=== PATIENT | female | born 2005 | race Caucasian/White ===

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

== ENCOUNTER 2024-07-17 08:09 | Emergency (ER) | payer BC, SELFPAY ==
[2024-07-17 08:10] VITALS: BP 125/83; PULSE 91; RESP 16; TEMP 36.8; O2SAT 100; BMI 24.5
[2024-07-17 08:28] VITALS: BP 130/88; PULSE 94; O2SAT 99
[2024-07-17 08:28] LABS: Microscopic, Urine URINE MICROSCOPIC (MICROSCOPIC)
[2024-07-17 08:30] VITALS: BP 115/64; PULSE 25; O2SAT 93
[2024-07-17 08:33] LABS: Appearance,Urine CLEAR (Clear); Bilirubin,Urine Negative (Negative); Blood, Urine Negative (Negative); Color,Urine YELLOW (Yellow); Glucose,Urine (UA) Negative (Negative); Ketones,Urine Negative (Negative); Leukocyte Esterase,Urine TRACE (Negative); Nitrate,Urine Negative (Negative); Protein,Urine Negative (Negative); Specific Gravity, Urine 1.025 (1.005-1.030); Urobilinogen,Urine 0.2 EU/dl (0.2)
[2024-07-17 08:36] LABS: Urine Pregnancy, HCG Qual. Negative (Negative)
[2024-07-17 08:37] VITALS: BP 95/63; PULSE 89; O2SAT 99
--- NOTE | 2024-07-17 08:44 | ED_ITS ---
Discharge Plan Disposition Patient Disposition: Home, Self-Care Condition: Good Prescriptions Prescriptions: New polyethylene glycol 3350 [Miralax] 17 gram/dose powder 17 g PO DAILY Qty: 510 0RF hydrocortisone acetate [Anusol-HC] 25 mg suppository 25 mg [place] HS PRN (Reason: hemorrhoids) Qty: 24 0RF No Action levonorgestrel-ethinyl estrad [Aviane] 0.1-20 mg-mcg tablet 1 tab PO DAILY Qty: 84 0RF Referrals Follow up/Referrals: Farzaneh Philippe APRN [Primary Care Provider] - See instructions Activity Restrictions/Add. Instructions Additional Instructions/Restrictions: You were evaluated in the emergency department today. At this time, you have a fissure at the posterior aspect of your vagina as well as a small hemorrhoid. We are prescribing you MiraLAX to make sure that your stools are soft to alleviate pressure on your hemorrhoid and to make sure that you do not have to strain to have bowel movements. For your vaginal fissure, I recommend avoiding irritants such as soap, spermicide cream, irritating lubricants, or rough pantiliners. You may coat the area with Vaseline or petroleum jelly to help provide a protective barrier if this helps to eliminate pain. I recommend warm sitz baths. I recommend avoiding sexual activity until this area has improved and you no longer have pain. Once you resume sexual activity, make sure you have adequate lubrication. Please follow-up very closely with gynecology over the next week for reassessment, as they may need to do further testing if this persists. Return to the emergency department for new or worsening symptoms. Clinical Impressions Clinical Impression: Fissure of genital labia, Candidiasis of vagina, Hemorrhoid Stand Alone Forms Stand Alone Forms: Work/School Release Instructions Patient Instructions: DI for Vulvo-vaginal Tears Print Language Print Language: Romansh Discharge ED Provider: Cecelia Fine General Adult HPI General Chief complaint: Skin/Abscess/Foreign Body Stated complaint: Pain in private area Time Seen by Provider: 07/17/24 08:12 Mode of Arrival: Ambulatory Source of Information: Patient Limitations: No Limitations Description of Symptoms (Recalled from ER Triage Doc. by RN): pt presents to ED with c/o possible bump in vaginal area. pt reports that she noticed about 1 day ago. pt did get nexplanon removed from arm yesterday at obgyn office. History of Present Illness HPI narrative: This patient is a 18-year-old female without significant past medical history presenting to the emergency department for evaluation with concern for vaginal pain. Patient reports that she has an area of irritation with burning and pain between her vagina and rectum. She states she is not sure if she has a hemorrhoid or what it could be. It started bothering her 2 days ago, but got acutely worse today. She notes that whenever she pees and urine runs back onto the area, it howard. She also has significant pain if she tries to have a bowel movement or wipes. She is sexually active but reports use of protection with no concerns for sexually transmitted infection. She has no history of sexually transmitted infection. She denies any fevers, chills, abdominal pain, nausea, vomiting, dysuria, abnormal vaginal discharge or bleeding. Of note, she did have a Nexplanon removed yesterday with gynecology for abnormal uterine bleeding. She does note that she has chronic constipation on review of systems. Related Data Previous Rx's ?Medication ?Instructions ?Recorded levonorgestrel-ethinyl estradiol 1 tab PO DAILY #84 tabs 07/16/24 0.1 mg-20 mcg tablet (Aviane) hydrocortisone acetate 25 mg 25 mg [place] HS PRN hemorrhoids #24 ea 07/17/24 rectal suppository (Anusol-HC) polyethylene glycol 3350 17 17 g PO DAILY #510 grams 07/17/24 gram/dose oral powder (Miralax) Allergies Allergy/AdvReac Type Severity Reaction Status Date / Time ceftriaxone (From Rocephin) Allergy Intermediate Rash Verified 07/16/24 13:49 [facility] Disclaimer: The information contained in this section may have been updated after the patient was seen, as this information can be updated by other users. Medical History Anxiety Urinary tract infection Abnormal uterine bleeding Migraine Scheuermann disease Surgical History History of tympanostomy tube placement History of tonsillectomy Family History Other Thyroid disorder Social History Smoking Status: Never smoker alcohol intake: never substance use type: denies use current occupational status: employed, student and other Travel in the last 8 weeks: None household members: family housing: house number of children: 0 Have you lived/traveled outside US in past 30 days?: No Contact w/someone who lives/traveled outside US past 30 days?: No Exposure to someone with infectious disease in past 14 days?: No Do you have a fever (greater than 100.4 F or 38 C)?: No Have you tested positive for COVID-19: No Exposed to someone with COVID-19 in past 14 days?: No Do you have a sore throat?: No Do you have a cough?: No Do you have any weakness?: No Do you have any diarrhea?: No Are you experiencing any unusual bleeding?: No Do you have any muscle aches/pain?: No Do you have any abdominal pain?: No Are you experiencing loss of taste or smell?: No Other Medical History Have you received the Flu Vaccine for this season: No Have you received the Pneumonia Vaccine: No ROS Obtained: Yes All systems reviewed & no additional complaints except as documented Physical Exam General General appearance: alert and in no apparent distress Head Head exam: atraumatic and normocephalic Eye Eye exam: Present normal appearance, PERRL and EOMI ENT ENT exam: Present normal exam, normal oropharynx, mucous membranes moist and normal external ear exam Neck Neck exam: Present normal inspection, full ROM and trachea midline; Absent tenderness Chest Chest inspection: Present normal inspection and symmetric chest wall rise; Absent tenderness Respiratory Respiratory exam: Present normal lung sounds bilaterally; Absent respiratory distress, wheezes, stridor or accessory muscle use Cardiovascular Cardiovascular exam: Present regular rate and normal rhythm Abdominal Exam Abdominal exam: Present soft; Absent distention, tenderness or guarding Expanded Exam OB exam: Present vulvar erythema and vulvar tenderness Female Image: 2 1. Fissuring of the posterior fourchette with redness, irritation, tenderness to palpation. White discharge. 2. Erythema and skin irritation 3. Nonthrombosed hemorrhoid that is tender to palpation Extremities Exam Extremities exam: Present normal inspection, full ROM and normal capillary refill; Absent tenderness or edema Back Exam Back exam: Present normal inspection and full ROM; Absent tenderness Neurological Exam Neurological exam: Present alert, oriented X3, CN II-XII intact and normal gait; Absent motor sensory deficit Psychiatric Psychiatric exam: Present normal affect and normal mood Skin Skin exam: Present warm and dry Medical Decision Making Medical Records Medical records reviewed: Yes I reviewed the patient's medical records. Screening: Per USPSTF and CDC recommendations, given the prevalence of disease in our region, it is our hospital?s policy to screen for HIV and viral Hepatitis for all patients aged 18 and over and those with ongoing risk factors. Tarun Inquiry Pt receiving controlled substance: No Vital Signs: 07/17/24 08:10 07/17/24 08:28 07/17/24 08:30 Temperature 98.2 F Temperature Source Oral Pulse Rate 94 H 25 L Pulse Rate [Left Radial] 91 H Respiratory Rate 16 Blood Pressure 130/88 115/64 Blood Pressure [Right Arm] 125/83 Blood Pressure Mean [Right Arm] 97 02 Sat by Pulse Oximetry 100 99 93 L Oxygen Delivery Method Room Air Room Air 07/17/24 08:37 07/17/24 09:38 Temperature 97.8 F Temperature Source Pulse Rate 89 80 Pulse Rate [Left Radial] Respiratory Rate 18 Blood Pressure 95/63 L 95/63 L Blood Pressure [Right Arm] Blood Pressure Mean [Right Arm] 02 Sat by Pulse Oximetry 99 Oxygen Delivery Method Room Air Lab Data Lab results reviewed: Yes I reviewed the patient's lab results. Lab Results 07/17/24 08:18: Urine Color Yellow, Urine Appearance Clear, Urine pH 6.0, Ur Specific [place] 1.025, Urine Protein Negative, Urine Glucose (UA) Negative, Urine Ketones Negative, Urine Blood Negative, Urine Nitrate Negative, Urine Bilirubin Negative, Urine Urobilinogen 0.2, Ur Leukocyte Esterase Trace, Urine RBC Occasional, Urine WBC 5-10, Ur Squamous Epith Cells 10-20, Urine Bacteria 1+, Urine HCG, Qual Negative Orders (Tests/Meds): ED MEDICATIONS Discontinued Medications Generic Name Dose Route Start Last Admin Trade Name Freq PRN Reason Stop Dose Admin Acetaminophen 1,000 mg 07/17/24 08:29 07/17/24 08:45 Acetaminophen 500mg Tab PO 07/17/24 08:30 1,000 mg ONCE ONE Administration Cocaine HCl 1 ml 07/17/24 08:35 Cocaine 4% Topical Soln 4ml Bottle TP 07/17/24 08:36 ONCE ONE Epinephrine HCl 1 mg 07/17/24 08:35 Epinephrine 1 Mg/Ml Ampul TP 07/17/24 08:36 ONCE ONE Fluconazole 200 mg 07/17/24 08:45 07/17/24 08:45 Fluconazole 100mg Tablet PO 07/17/24 08:46 200 mg ONCE ONE Administration Ibuprofen 800 mg 07/17/24 08:29 07/17/24 08:45 Ibuprofen 400 Mg Tablet PO 07/17/24 08:30 800 mg ONCE ONE Administration Lidocaine HCl 1 ml 07/17/24 08:35 07/17/24 08:45 Lidocaine 2% Urojet 10ml TP 07/17/24 08:36 1 ml ONCE ONE Administration Ondansetron HCl 4 mg 07/17/24 08:29 07/17/24 08:45 Ondansetron 4mg Odt SL 07/17/24 08:30 4 mg ONCE ONE Administration ORDERS Category Date Time Status HSV 1/2 PCR, (BLOOD/SWAB) Routine Lab 07/17/24 08:43 Received UA [Urinalysis and Microscopic] Stat Lab 07/17/24 08:18 Completed Urine , HCG Qual. Stat Lab 07/17/24 08:18 Completed Medical Decision Narrative: In summary, this patient is a 18-year-old female presenting to the Emergency Department for evaluation of vaginal/rectal pain and irritation. Differential diagnoses considered include but are not limited to bacterial vaginosis, sexually transmitted infection, HSV, candidiasis, hemorrhoids, anal fissure, vaginal laceration. Ruling out the most morbid conditions drove assessment. I reviewed patient's past medical records and noted evaluation yesterday by gynecology with removal of Nexplanon for dysfunctional uterine bleeding. On exam, patient has fissuring of the posterior vaginal fourchette with redness, irritation, white discharge. No foul odor. She also has a nonthrombosed hemorrhoid that is tender to palpation at the rectum. No vesicular lesions or other concerns noted. No large lacerations. I feel the fissuring is most likely related to candidiasis based on clinical presentation and acute onset, but also could be bacterial vaginosis, HSV, atrophic vulvovaginitis, lichen simplex, aphthous ulceration, lichen sclerosis. workup included urinalysis, urine test, urine gonorrhea chlamydia, HSV swabs, NELIA, wet prep. Topical Uro-Jet was applied to the lesions after exam/swabs for pain control and patient was given oral Tylenol, ibuprofen, and Zofran. She does have chronic constipation and a small nonthrombosed hemorrhoid, so I discussed with her use of MiraLAX to maintain soft stools as well as Anusol suppositories. I will provide prescriptions for these. On reassessment, the patient is resting comfortably. NELIA/wet prep negative for BV, trichomonas, yeast. I do still feel that candidiasis is likely based on the exam, however it could be inflammatory. I did go ahead and give the patient a dose of oral fluconazole here x 1. At this time, I feel she is appropriate for discharge with close gynecology follow-up. She was given prescriptions for MiraLAX and Anusol suppositories as well as instructions for supportive management and close follow-up with gynecology. She was discharged with strict return precautions. Critical Care Critical Care Time Critical Care Time: No
[2024-07-17] MEDS: ONDANSETRON 4MG ODT 4 MG SL (08:45)
[2024-07-17] MEDS: ACETAMINOPHEN 500MG TAB 1000 MG PO (08:45)
[2024-07-17] MEDS: LIDOCAINE 2% UROJET 10ML TP (08:45)
[2024-07-17] MEDS: IBUPROFEN 400 MG TABLET 800 MG PO (08:45)
[2024-07-17] MEDS: FLUCONAZOLE 100MG TABLET 200 MG PO (08:45)
[2024-07-17 09:09] LABS: Bacteria,Urine 1+ /lpf; RBC,Urine Occasional #/hpf (0-3)
[2024-07-17 09:38] VITALS: BP 95/63; PULSE 80; RESP 18; TEMP 36.6; O2SAT 97
[2024-07-19 08:15] LABS: Neisseria gonorrhoeae, NAA Negative (Negative)
[2024-07-21 23:07] LABS: HSV-1 DNA Positive (Negative); HSV-2 DNA Negative (Negative)
== END 2024-07-17 09:40 | disposition home or self-care (01) ==
PROVIDERS: Emergency Provider Emergency Medicine; PCP Registered Nurse
DX: B37.31 Acute candidiasis of vulva and vagina (principal); N90.89 Other specified noninflammatory disorders of vulva and perineum; K64.9 Unspecified hemorrhoids; R10.2 Pelvic and perineal pain
CPT/HCPCS: 81001; 81025; 87210; 87220; 87491; 87529; 87591; 99283; Q0162

== ENCOUNTER 2024-07-23 23:29 | Emergency (ER) | payer BC, SELFPAY ==
[2024-07-23 23:44] VITALS: BP 146/89; PULSE 72; RESP 16; TEMP 36.8; O2SAT 96; BMI 23.6
[2024-07-24 00:08] VITALS: BP 146/89; PULSE 72; RESP 16; TEMP 36.8
--- NOTE | 2024-07-24 04:50 | ED_ITS ---
Discharge Plan Disposition Patient Disposition: Home, Self-Care Condition: Good Prescriptions Prescriptions: New nitroglycerin 0.4 % (w/w) ointment 0.5 inch MD BID 7 Days Qty: 30 0RF No Action levonorgestrel-ethinyl estrad [Aviane] 0.1-20 mg-mcg tablet 1 tab PO DAILY Qty: 84 0RF polyethylene glycol 3350 [Miralax] 17 gram/dose powder 17 g PO DAILY Qty: 510 0RF hydrocortisone acetate [Anusol-HC] 25 mg suppository 25 mg MD HS PRN (Reason: hemorrhoids) Qty: 24 0RF Referrals Follow up/Referrals: Karl Thacker MD [Staff Physician] - See instructions (hemorrhoid, thormbosed) Farzaneh Philippe APRN [Primary Care Provider] - See instructions Activity Restrictions/Add. Instructions Additional Instructions/Restrictions: You were evaluated in the ER and are appropriate for discharge at this time. Continue using the pfkd-rim-tkzfxnl ointment that you have until you pickler helper the nitroglycerin ointment prescription. Use a small amount of the nitroglycerin ointment on the rectum/hemorrhoid twice daily for 1 week. Continue avoiding all rough textures, intercourse, toys, irritating lotions or lubricants until the vaginal fissure is completely healed. Do sitz bath's 2-3 times a day. You can pickler helper these kits [id number]. Make an appointment with your primary care doctor, but more importantly also make an appointment with the general surgeon to which you have been referred for follow-up of the thrombosed hemorrhoid. Return to the ER with new, worsening, or otherwise concerning symptoms. Clinical Impressions Clinical Impression: External hemorrhoid, thrombosed Print Language Print Language: Kinyarwanda Discharge ED Provider: Aleks Shah Adult HPI General Chief complaint: Vaginal Bleeding Stated complaint: abscess on private Time Seen by Provider: 07/23/24 23:45 Mode of Arrival: Ambulatory Source of Information: Patient Limitations: No Limitations Description of Symptoms (Recalled from ER Triage Doc. by RN): Pt states she has a lump in vagina History of Present Illness HPI narrative: Otherwise healthy 18-year-old female presents to the ER for concerns of possible lump near her vagina. On further discussion with the patient she reports she was recently evaluated and was told she had a tear near the vagina as well as a hemorrhoid. She states she has been putting wqyt-ega-tjklonn cream and a yellow tube (Preparation H) on the hemorrhoid and been using a laxative. She has not been using the prescribed suppository. I reviewed the note from patient's most recent encounter, at that time she had an external vaginal fissure as well as a nonthrombosed hemorrhoid. She was prescribed Anusol suppository. Patient reports in the last 24 hours the lump between her vagina and rectum has become painful. She thought it was potentially having discharge or bleeding but she could not tell. She reports no recent intercourse. She is not having itching. She states she wanted to make sure she did not have infection. She does not have fevers or chills, she is not having pain into the rectum or into the vagina, no itching or swelling. Related Data Previous Rx's ?Medication ?Instructions ?Recorded levonorgestrel-ethinyl estradiol 1 tab PO DAILY #84 tabs 07/16/24 0.1 mg-20 mcg tablet (Aviane) hydrocortisone acetate 25 mg 25 mg MD HS PRN hemorrhoids #24 ea 07/17/24 rectal suppository (Anusol-HC) polyethylene glycol 3350 17 17 g PO DAILY #510 grams 07/17/24 gram/dose oral powder (Miralax) nitroglycerin 0.4 % (w/w) rectal 0.5 inch MD BID 1 week #30 grams 07/24/24 ointment Allergies Allergy/AdvReac Type Severity Reaction Status Date / Time ceftriaxone (From Rocephin) Allergy Intermediate Rash Verified 07/16/24 13:49 [facility] Disclaimer: The information contained in this section may have been updated after the patient was seen, as this information can be updated by other users. Medical History Anxiety Urinary tract infection Abnormal uterine bleeding Migraine Scheuermann disease Surgical History History of tympanostomy tube placement History of tonsillectomy Family History Other Thyroid disorder Social History Smoking Status: Current every day smoker tobacco type: e-cigarettes alcohol intake: never substance use type: denies use current occupational status: employed, student and other Travel in the last 8 weeks: None household members: family housing: house number of children: 0 Have you lived/traveled outside US in past 30 days?: No Contact w/someone who lives/traveled outside US past 30 days?: No Exposure to someone with infectious disease in past 14 days?: No Do you have a fever (greater than 100.4 F or 38 C)?: No Have you tested positive for COVID-19: No Exposed to someone with COVID-19 in past 14 days?: No Do you have a sore throat?: No Do you have a cough?: No Do you have any weakness?: No Do you have any diarrhea?: No Are you experiencing any unusual bleeding?: No Do you have any muscle aches/pain?: No Do you have any abdominal pain?: No Are you experiencing loss of taste or smell?: No Other Medical History Have you received the Flu Vaccine for this season: No Have you received the Pneumonia Vaccine: No ROS Obtained: Yes Systems reviewed as appropriate & no additional complaints except as documented Per HPI Physical Exam General General appearance: alert and in no apparent distress Head Head exam: atraumatic and normocephalic Eye Eye exam: Present PERRL and EOMI ENT ENT exam: Present mucous membranes moist Neck Neck exam: Present normal inspection and full ROM Chest Chest inspection: Present symmetric chest wall rise Respiratory Respiratory exam: Absent respiratory distress or stridor Cardiovascular Cardiovascular exam: Present regular rate and normal rhythm Abdominal Exam Abdominal exam: Present soft; Absent distention or tenderness Rectal Exam Rectal exam: Present normal rectal tone, hemorrhoids (External hemorrhoid at the 12 o'clock position appears thrombosed, it is small, tender, no fluctuance or erythema of the area, no discharge) and other (No internal hemorrhoid appreciated) comment: RN Product Development Specialist present for /rectal exam External exam: Present other (Very small superficial fissure just posterior to the vaginal introitus at the 6 o'clock position, external tissues, not intravaginal; scant normal-appearing vaginal discharge); Absent erythema or swelling Extremities Exam Extremities exam: Present full ROM Neurological Exam Neurological exam: Present alert and oriented X3; Absent motor sensory deficit Psychiatric Psychiatric exam: Present normal affect and normal mood Skin Skin exam: Present warm and dry Medical Decision Making Medical Records Medical records reviewed: Yes I reviewed the patient's medical records. Screening: Per USPSTF and CDC recommendations, given the prevalence of disease in our region, it is our hospital?s policy to screen for HIV and viral Hepatitis for all patients aged 18 and over and those with ongoing risk factors. MR Comment: See HPI Tarun Inquiry Pt receiving controlled substance: No Vital Signs: 07/23/24 23:44 07/24/24 00:08 Temperature 98.3 F 98.3 F Temperature Source Oral Oral Pulse Rate 72 Pulse Rate [Right Brachial] 72 Respiratory Rate 16 16 Blood Pressure 146/89 H Blood Pressure [Right Arm] 146/89 H Blood Pressure Mean [Right Arm] 108 Blood Pressure Source Automatic Cuff Blood Pressure Source [Right Arm] Automatic Cuff Blood Pressure Position Sitting Blood Pressure Position [Right Arm] Sitting 02 Sat by Pulse Oximetry 96 Oxygen Delivery Method Room Air Room Air Medical Decision Narrative: In summary, this 18-year-old female presents to the emergency department today with perianal pain, lump. On initial evaluation patient is hemodynamically stable, afebrile, exam is most notable for small fissure of the superficial perineal tissue just posterior to the vaginal introitus at the 6 o'clock position, very small bleeding with manipulation, external thrombosed hemorrhoid appreciated. Differential diagnosis includes but is not limited to hemorrhoid, fissure, I considered the possibility of abscess or other infection, however there is no induration, erythema, fluctuance, or heat in this area. There are no findings of infection on exam. I do not believe patient requires labs or imaging at this time. The thrombosed hemorrhoid is very small and would not be appropriate for procedural intervention at this time. I prescribed nitroglycerin ointment for external application to the thrombosed hemorrhoid. With local pharmacies being closed due to the holiday I discussed where to prescribe this medication with the patient, she requested it still be prescribed to local pharmacy and she will pick it up tomorrow when pharmacies are open. In the meantime she is going to continue using laxative and munu-bnc-fqggazj hemorrhoid ointment. I also instructed her to be more diligent about regular sitz bath's. I provided referral to general surgery for follow-up of thrombosed hemorrhoid. I gave her instructions on diligent use of laxative to maintain soft, easy bowel movements, sitz bath use, symptomatic monitoring and management including instructions to watch for findings of infection, as well as strict return precautions for the ER. She indicated understanding and the patient was discharged in stable condition. Critical Care Critical Care Time Critical Care Time: No
== END 2024-07-24 00:13 | disposition home or self-care (01) ==
PROVIDERS: Emergency Provider Emergency Medicine; PCP Registered Nurse
DX: N90.89 Other specified noninflammatory disorders of vulva and perineum (principal); K64.5 Perianal venous thrombosis
CPT/HCPCS: 99283

== ENCOUNTER 2024-09-09 18:26 | Emergency (ER) | payer MEDICAID, SELFPAY ==
[2024-09-09 18:28] VITALS: BP 120/74; PULSE 84; RESP 18; TEMP 37; O2SAT 100; BMI 25.6
[2024-09-09 19:09] LABS: Coronavirus 19, PCR Not Detected (NotDetected); Influenza A, PCR Not Detected (NotDetected); Influenza B, PCR Not Detected (NotDetected)
--- NOTE | 2024-09-09 19:41 | ED_ITS ---
<Statement entered by Jovany Sesay MD - 09/09/24 23:50> I was consulted by the SEAN, and we discussed the complexity of the problems being addressed. I approved the treatment and management plan for this patient's care in the emergency department, thus performing a substantive portion of the medical decision making. Jovany Sesay MD Discharge Plan Disposition Patient Disposition: Home, Self-Care Condition: Good Prescriptions Prescriptions: New sqjilncwckpghcp-yauasrjij-BP [Bromfed DM] 2-30-10 mg/5 mL syrup 5 ml PO Q4H PRN (Reason: sinus symptoms) Qty: 118 0RF No Action levonorgestrel-ethinyl estrad [Aviane] 0.1-20 mg-mcg tablet 1 tab PO DAILY Qty: 84 0RF polyethylene glycol 3350 [Miralax] 17 gram/dose powder 17 g PO DAILY Qty: 510 0RF hydrocortisone acetate [Anusol-HC] 25 mg suppository 25 mg MI HS PRN (Reason: hemorrhoids) Qty: 24 0RF nitroglycerin 0.4 % (w/w) ointment 0.5 inch MI BID 7 Days Qty: 30 0RF Referrals Follow up/Referrals: Provider,ReferralMD [Primary Care Provider] - See instructions Clinical Impressions Clinical Impression: Headache Upper respiratory infection Qualifiers: URI type: unspecified URI Qualified Code(s): J06.9 - Acute upper respiratory infection, unspecified Print Language Print Language: Slovenian Discharge ED Provider: Jovany Sesay General Adult HPI General Chief complaint: Upper Respiratory Infection Stated complaint: HANSEN,body aches,nausea,tired,stomach pain Time Seen by Provider: 09/09/24 19:40 Mode of Arrival: Ambulatory Source of Information: Patient Limitations: No Limitations Description of Symptoms (Recalled from ER Triage Doc. by RN): Pt presents for evaluation of headaches, nausea, bodyaches, cough. History of Present Illness HPI narrative: Patient presents for evaluation of 1 week of headache nausea cough. Patient has had bodyaches myalgias cough fever chills for 1 week. She denies any chest pain shortness of breath hemoptysis hematochezia melena vomiting or diarrhea. However today she began having a headache that is located globally with no focal neurologic deficits but however is not responded to iiht-iog-yvzglgp treatments and she presents to the ER for evaluation. Related Data Previous Rx's ?Medication ?Instructions ?Recorded levonorgestrel-ethinyl estradiol 1 tab PO DAILY #84 tabs 07/16/24 0.1 mg-20 mcg tablet (Aviane) hydrocortisone acetate 25 mg 25 mg MI HS PRN hemorrhoids #24 ea 07/17/24 rectal suppository (Anusol-HC) polyethylene glycol 3350 17 17 g PO DAILY #510 grams 07/17/24 gram/dose oral powder (Miralax) nitroglycerin 0.4 % (w/w) rectal 0.5 inch MI BID 1 week #30 grams 07/24/24 ointment efgdjgkxsxcoqkc-inqkwrcvvziejfe-XJ 5 ml PO Q4H PRN sinus symptoms 09/09/24 2 mg-30 mg-10 mg/5 mL oral syrup #118 mL (Bromfed DM) Allergies Allergy/AdvReac Type Severity Reaction Status Date / Time ceftriaxone (From Rocephin) Allergy Intermediate Rash Verified 07/16/24 13:49 [facility] Disclaimer: The information contained in this section may have been updated after the patient was seen, as this information can be updated by other users. Medical History Anxiety Urinary tract infection Abnormal uterine bleeding Migraine Scheuermann disease Surgical History History of tympanostomy tube placement History of tonsillectomy Family History Other Thyroid disorder Social History Smoking Status: Never smoker alcohol intake: never substance use type: denies use current occupational status: employed, student and other Travel in the last 8 weeks: None household members: family housing: house number of children: 0 Have you lived/traveled outside US in past 30 days?: No Contact w/someone who lives/traveled outside US past 30 days?: No Exposure to someone with infectious disease in past 14 days?: No Do you have a fever (greater than 100.4 F or 38 C)?: No Have you tested positive for COVID-19: No Exposed to someone with COVID-19 in past 14 days?: No Do you have a sore throat?: No Do you have a cough?: No Do you have any weakness?: No Do you have any diarrhea?: No Are you experiencing any unusual bleeding?: No Do you have any muscle aches/pain?: Yes Do you have any abdominal pain?: No Are you experiencing loss of taste or smell?: No Other Medical History Have you received the Flu Vaccine for this season: No Have you received the Pneumonia Vaccine: No ROS Obtained: Yes Systems reviewed as appropriate & no additional complaints except as documented Physical Exam General General appearance: alert and in no apparent distress Respiratory Respiratory exam: Present normal lung sounds bilaterally Cardiovascular Cardiovascular exam: Present regular rate Neurological Exam Neurological exam: Present alert and oriented X3 Medical Decision Making Medical Records Screening: Per USPSTF and CDC recommendations, given the prevalence of disease in our region, it is our hospital?s policy to screen for HIV and viral Hepatitis for all patients aged 18 and over and those with ongoing risk factors. Tarun Inquiry Pt receiving controlled substance: No Vital Signs: 09/09/24 18:28 09/09/24 19:29 Temperature 98.6 F Temperature Source Oral Pulse Rate [Right] 84 Respiratory Rate 18 Blood Pressure [Right Arm] 120/74 Blood Pressure Mean [Right Arm] 89 Blood Pressure Position [Right Arm] Sitting 02 Sat by Pulse Oximetry 100 Oxygen Delivery Method Room Air Room Air Lab Data Lab results reviewed: Yes I reviewed the patient's lab results. Lab Results 09/09/24 19:06: SARS-CoV-2 (PCR) Not detected, Influenza A Untype (PCR) Not detected, Influenza Type B (PCR) Not detected Orders (Tests/Meds): ED MEDICATIONS Discontinued Medications Generic Name Dose Route Start Last Admin Trade Name Mel PRN Reason Stop Dose Admin Acetaminophen 1,000 mg 09/09/24 19:55 09/09/24 20:17 Acetaminophen 500mg Tab PO 09/09/24 19:56 1,000 mg ONCE ONE Administration Diphenhydramine HCl 50 mg 09/09/24 19:55 09/09/24 20:17 Diphenhydramine 25mg Capsule PO 09/09/24 19:56 50 mg ONCE ONE Administration Ibuprofen 800 mg 09/09/24 19:55 09/09/24 20:17 Ibuprofen 400 Mg Tablet PO 09/09/24 19:56 400 mg ONCE ONE Administration Prochlorperazine Maleate 10 mg 09/09/24 19:55 09/09/24 20:17 Prochlorperazine 10mg Tablet PO 09/09/24 19:56 10 mg ONCE ONE Administration ORDERS Category Date Time Status Rapid PCR Covid and Flu A/B Routine Lab 09/09/24 19:06 Completed Medical Decision Narrative: In summary patient is a 19-year-old female who presents to the emergency department for evaluation of headache and upper respiratory tract infection. Patient is hemodynamically stable upon arrival, febrile. Physical exam is remarkable for normal breath sounds normal heart sounds and normal posterior pharynx with no cervical lymphadenopathy, pupils equal round reactive to light commendation, Marie Coma Score is 15 patient is awake alert and oriented person place and circumstance, patient has full range of motion of the C-spine to 45 degrees lateral and anterior posterior without pain. Differential diagnosis includes headache versus URI versus migraine etc. Initial workup will be conducted with respiratory swabs. Initial interventions include Benadryl Compazine Robaxin ibuprofen. Initial workup reviewed by me and her COVID and flu swabs are negative. Upon repeat evaluation patient however had complete resolution of her headache after initial intervention. Given this mother remains diagnostic uncertainty likely patient has a viral upper respiratory tract infection that is that she is having resolving symptoms but has no focal neurologic deficits and she is in no intractable headache. Though she is appropriate for discharge with continued symptomatic treatment. Critical Care Critical Care Time Critical Care Time: No
[2024-09-09] MEDS: diphenhydrAMINE 25MG CAPSULE 50 MG PO (20:17)
[2024-09-09] MEDS: PROCHLORPERAZINE 10MG TABLET 10 MG PO (20:17)
[2024-09-09] MEDS: IBUPROFEN 400 MG TABLET 800 MG PO (20:17)
[2024-09-09] MEDS: ACETAMINOPHEN 500MG TAB 1000 MG PO (20:17)
[2024-09-09 21:23] VITALS: BP 116/65; PULSE 76; RESP 18; TEMP 36.8; O2SAT 100
== END 2024-09-09 21:24 | disposition home or self-care (01) ==
PROVIDERS: Emergency Provider Emergency Medicine
DX: J06.9 Acute upper respiratory infection, unspecified (principal); R51.9 Headache, unspecified; R11.0 Nausea; R05.9 Cough, unspecified; M79.10 Myalgia, unspecified site; R50.9 Fever, unspecified
CPT/HCPCS: 87636; 99283; Q0164

== ENCOUNTER 2024-09-14 14:41 | Emergency (ER) | payer MEDICAID, SELFPAY ==
[2024-09-14 14:43] VITALS: BP 129/63; PULSE 88; RESP 18; TEMP 37; O2SAT 99; BMI 25.6
--- NOTE | 2024-09-14 14:51 | PC.NURSE ---
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 pt presents with a lac to the lateral aspect of her palm. There is no bleeding at this time. pt states her TDAP is up to date. pt has not taken any medication for the pt. pt reports the pain is 9/10 and sharp in nature. radial pulse intact.
[2024-09-14 14:56] VITALS: BP 114/72; PULSE 83; O2SAT 99
[2024-09-14 15:00] VITALS: BP 108/49; PULSE 80; O2SAT 99
--- NOTE | 2024-09-14 15:29 | PC.NURSE ---
I rounded on the pt and I am having her soak her hand in sterile water and chlorahexadine. no new complaints. no needs voiced. call nava in reach.
[2024-09-14 15:30] VITALS: BP 121/65; PULSE 76; O2SAT 98
[2024-09-14] MEDS: ACETAMINOPHEN 500MG TAB 1000 MG PO (15:36)
[2024-09-14] MEDS: IBUPROFEN 600 MG TABLET PO (15:37)
--- NOTE | 2024-09-14 15:40 | HMH.EDGENADL ---
Discharge Plan Disposition Patient Disposition: Home, Self-Care Condition: Good Prescriptions Prescriptions: No Action buspirone 10 mg tablet 10 mg PO TID Referrals Follow up/Referrals: Provider,Referral, MD [Primary Care Provider] - See instructions Activity Restrictions/Add. Instructions Additional Instructions/Restrictions: Keep hand clean and wrapped for the next 48 hours. After that you may remove the bandage and wash your hands with normal soap and water. Do not soak the hand while the glue is intact. Do not lift items with your left hand. Please follow up with your primary care provider in 2-3 days. Please return to ED if your symptoms worsen, change in location, change in severity, new symptoms develop or if you become concerned for your health. Clinical Impressions Clinical Impression: Laceration of hand without complication, including fingers Qualifiers: Encounter type: initial encounter Laterality: left Qualified Code(s): S61.412A - Laceration without foreign body of left hand, initial encounter Instructions Patient Instructions: DI for Laceration Repair Print Language Print Language: Macedonian Discharge ED Provider: Carmen Avina General Adult HPI General Chief complaint: Wound/Laceration Stated complaint: left hand cut on window Time Seen by Provider: 09/14/24 15:11 Mode of Arrival: Ambulatory Source of Information: Patient Limitations: No Limitations Description of Symptoms (Recalled from ER Triage Doc. by RN): Patient presents with a laceration to her left palm. States she was closing a window when the glass broke and lacerated her hand. Bleeding controlled in triage. Assessment deferred until provider evaluation to prevent further bleeding. History of Present Illness HPI narrative: [place] Mary is a 19-year-old female presenting with hand laceration. Patient states she was trying to close a window to lock it when her hand slipped and the glass broke. Patient states she has had a tetanus shot in the last 5 years. Patient did not take Tylenol or ibuprofen prior to coming. Patient has full range of motion of her hand. Patient is right-hand dominant. Related Data Home Medications ?Medication ?Instructions ?Recorded ?Confirmed buspirone 10 mg tablet 10 mg PO TID 09/14/24 09/14/24 Allergies Allergy/AdvReac Type Severity Reaction Status Date / Time ceftriaxone (From Rocephin) Allergy Intermediate Rash Verified 09/14/24 15:00 [facility] Disclaimer: The information contained in this section may have been updated after the patient was seen, as this information can be updated by other users. Medical History Anxiety Urinary tract infection Abnormal uterine bleeding Migraine Scheuermann disease Surgical History History of tympanostomy tube placement History of tonsillectomy Family History Other Thyroid disorder Social History Smoking Status: Current every day smoker tobacco type: e-cigarettes alcohol intake: never substance use type: denies use current occupational status: employed, student and other Travel in the last 8 weeks: None household members: family housing: house number of children: 0 Have you lived/traveled outside US in past 30 days?: No Contact w/someone who lives/traveled outside US past 30 days?: No Exposure to someone with infectious disease in past 14 days?: No Do you have a fever (greater than 100.4 F or 38 C)?: No Have you tested positive for COVID-19: No Exposed to someone with COVID-19 in past 14 days?: No Do you have a sore throat?: No Do you have a cough?: No Do you have any weakness?: No Do you have any diarrhea?: No Are you experiencing any unusual bleeding?: No Do you have any muscle aches/pain?: No Do you have any abdominal pain?: No Are you experiencing loss of taste or smell?: No Other Medical History Have you received the Flu Vaccine for this season: No Have you received the Pneumonia Vaccine: No ROS Obtained: Yes All systems reviewed & no additional complaints except as documented Physical Exam General General appearance: alert and in no apparent distress Respiratory Respiratory exam: Present normal lung sounds bilaterally Cardiovascular Cardiovascular exam: Present regular rate and normal rhythm Abdominal Exam Abdominal exam: Present soft; Absent distention or tenderness Extremities Exam Extremities exam: Present full ROM; Absent tenderness or edema Expanded Upper Extremity Exam Left: Hand exam: Present full ROM and laceration (Medial palmar laceration, well-approximated, hemostatic. Semicircular laceration to fifth finger and abrasion to middle finger. All injuries to palmar surface.) Neurological Exam Neurological exam: Present alert and oriented X3 Skin Skin exam: Present warm and dry Medical Decision Making Medical Records Medical records reviewed: Yes I reviewed the patient's medical records. Screening: Per USPSTF and CDC recommendations, given the prevalence of disease in our region, it is our hospital?s policy to screen for HIV and viral Hepatitis for all patients aged 18 and over and those with ongoing risk factors. Tarun Inquiry Pt receiving controlled substance: No Tarun was queried for this patient: No Vital Signs: 09/14/24 14:43 09/14/24 14:56 09/14/24 15:00 Temperature 98.6 F Temperature Source Oral Pulse Rate 83 80 Pulse Rate [Radial] 88 Respiratory Rate 18 Blood Pressure 114/72 108/49 L Blood Pressure [R Arm] 129/63 Blood Pressure Mean Blood Pressure Mean [R Arm] 85 Blood Pressure Source [R Arm] Automatic Cuff 02 Sat by Pulse Oximetry 99 99 99 Oxygen Delivery Method Room Air 09/14/24 15:30 09/14/24 16:00 09/14/24 16:00 Temperature 98.6 F Temperature Source Pulse Rate 76 73 73 Pulse Rate [Radial] Respiratory Rate 14 Blood Pressure 121/65 121/65 101/69 L Blood Pressure [R Arm] Blood Pressure Mean 83 76 Blood Pressure Mean [R Arm] Blood Pressure Source [R Arm] 02 Sat by Pulse Oximetry 98 98 Oxygen Delivery Method Room Air Room Air Lab Data Lab results reviewed: Yes I reviewed the patient's lab results. Orders (Tests/Meds): ED MEDICATIONS Discontinued Medications Generic Name Dose Route Start Last Admin Trade Name Freq PRN Reason Stop Dose Admin Acetaminophen 1,000 mg 09/14/24 15:26 09/14/24 15:36 Acetaminophen 500mg Tab PO 09/14/24 15:27 1,000 mg ONCE ONE Administration Ibuprofen 600 mg 09/14/24 15:26 09/14/24 15:37 Ibuprofen 600 Mg Tablet PO 09/14/24 15:27 600 mg ONCE ONE Administration Medical Decision Narrative: In summary, this is a 19-year-old female presenting with hand laceration. Differential diagnosis includes but is not limited to, tendon injury, vascular injury, open fracture, among others. Based on type of injury and clean nature of wounds, patient's hand soaked in no imaging indicated at this time. Patient has full range of motion and the mechanism is not suggestive of possible open fracture. Patient up-to-date on her tetanus. Patient given Tylenol and ibuprofen for pain control. Lacerations repaired with Dermabond. Bulky dressing applied to prevent significant motion of the hand. Patient given instructions for wound care and indications to follow-up. Carmen Avina MD Procedures Laceration Laceration 1: Site: hand Side (If applicable): left Size (cm): 2 Description: linear and clean Depth: simple, single layer Pre-repair: irrigated extensively Skin layer closed with: Dermabond Critical Care Critical Care Time Critical Care Time: No
--- NOTE | 2024-09-14 15:47 | HMH.EDGENADL ---
Discharge Plan Disposition Patient Disposition: Home, Self-Care Condition: Good Prescriptions Prescriptions: No Action buspirone 10 mg tablet 10 mg PO TID Referrals Follow up/Referrals: Provider,Referral, MD [Primary Care Provider] - See instructions Activity Restrictions/Add. Instructions Additional Instructions/Restrictions: Keep hand clean and wrapped for the next 48 hours. After that you may remove the bandage and wash your hands with normal soap and water. Do not soak the hand while the glue is intact. Do not lift items with your left hand. Please follow up with your primary care provider in 2-3 days. Please return to ED if your symptoms worsen, change in location, change in severity, new symptoms develop or if you become concerned for your health. Clinical Impressions Clinical Impression: Laceration of hand without complication, including fingers Qualifiers: Encounter type: initial encounter Laterality: left Qualified Code(s): S61.412A - Laceration without foreign body of left hand, initial encounter Instructions Patient Instructions: DI for Laceration Repair Print Language Print Language: Malay Discharge ED Provider: Carmen Avina Adult HPI General Chief complaint: Wound/Laceration Stated complaint: left hand cut on window Time Seen by Provider: 09/14/24 15:11 Mode of Arrival: Ambulatory Source of Information: Patient Limitations: No Limitations Description of Symptoms (Recalled from ER Triage Doc. by RN): Patient presents with a laceration to her left palm. States she was closing a window when the glass broke and lacerated her hand. Bleeding controlled in triage. Assessment deferred until provider evaluation to prevent further bleeding. Related Data Home Medications ?Medication ?Instructions ?Recorded ?Confirmed buspirone 10 mg tablet 10 mg PO TID 09/14/24 09/14/24 Allergies Allergy/AdvReac Type Severity Reaction Status Date / Time ceftriaxone (From Rocephin) Allergy Intermediate Rash Verified 09/14/24 15:[address] [facility] Disclaimer: The information contained in this section may have been updated after the patient was seen, as this information can be updated by other users. Medical History Anxiety Urinary tract infection Abnormal uterine bleeding Migraine Scheuermann disease Surgical History History of tympanostomy tube placement History of tonsillectomy Family History Other Thyroid disorder Social History Smoking Status: Current every day smoker tobacco type: e-cigarettes alcohol intake: never substance use type: denies use current occupational status: employed, student and other Travel in the last 8 weeks: None household members: family housing: house number of children: 0 Have you lived/traveled outside US in past 30 days?: No Contact w/someone who lives/traveled outside US past 30 days?: No Exposure to someone with infectious disease in past 14 days?: No Do you have a fever (greater than 100.4 F or 38 C)?: No Have you tested positive for COVID-19: No Exposed to someone with COVID-19 in past 14 days?: No Do you have a sore throat?: No Do you have a cough?: No Do you have any weakness?: No Do you have any diarrhea?: No Are you experiencing any unusual bleeding?: No Do you have any muscle aches/pain?: No Do you have any abdominal pain?: No Are you experiencing loss of taste or smell?: No Other Medical History Have you received the Flu Vaccine for this season: No Have you received the Pneumonia Vaccine: No Physical Exam General General appearance: alert and in no apparent distress Medical Decision Making Tarun Inquiry Pt receiving controlled substance: No Tarun was queried for this patient: No Vital Signs: 09/14/24 14:43 09/14/24 14:56 09/14/24 15:00 Temperature 98.6 F Temperature Source Oral Pulse Rate 83 80 Pulse Rate [Radial] 88 Respiratory Rate 18 Blood Pressure 114/72 108/49 L Blood Pressure [R Arm] 129/63 Blood Pressure Mean Blood Pressure Mean [R Arm] 85 Blood Pressure Source [R Arm] Automatic Cuff 02 Sat by Pulse Oximetry 99 99 99 Oxygen Delivery Method Room Air 09/14/24 15:30 09/14/24 16:00 09/14/24 16:00 Temperature 98.6 F Temperature Source Pulse Rate 76 73 73 Pulse Rate [Radial] Respiratory Rate 14 Blood Pressure 121/65 121/65 101/69 L Blood Pressure [R Arm] Blood Pressure Mean 83 76 Blood Pressure Mean [R Arm] Blood Pressure Source [R Arm] 02 Sat by Pulse Oximetry 98 98 Oxygen Delivery Method Room Air Room Air Orders (Tests/Meds): ED MEDICATIONS Discontinued Medications Generic Name Dose Route Start Last Admin Trade Name Freq PRN Reason Stop Dose Admin Acetaminophen 1,000 mg 09/14/24 15:26 09/14/24 15:36 Acetaminophen 500mg Tab PO 09/14/24 15:27 1,000 mg ONCE ONE Administration Ibuprofen 600 mg 09/14/24 15:26 09/14/24 15:37 Ibuprofen 600 Mg Tablet PO 09/14/24 15:27 600 mg ONCE ONE Administration
[2024-09-14 16:00] VITALS: BP 101/69; BP 121/65; PULSE 73; RESP 14; TEMP 37; O2SAT 98; O2SAT 99
== END 2024-09-14 16:05 | disposition home or self-care (01) ==
PROVIDERS: Emergency Provider Student in an Organized Health Care Education/Training Program
DX: S61.412A Laceration without foreign body of left hand, initial encounter (principal); M79.642 Pain in left hand; W25.XXXA Contact with sharp glass, initial encounter; Y93.89 Activity, other specified; Y92.009 Unspecified place in unspecified non-institutional (private) residence as the place of occurrence of the external cause
CPT/HCPCS: 99282

== ENCOUNTER 2024-09-16 18:21 | Emergency (ER) | payer MEDICAID, SELFPAY ==
[2024-09-16 18:22] VITALS: BP 138/68; PULSE 74; RESP 18; TEMP 36.6; O2SAT 98; BMI 25.6
--- NOTE | 2024-09-16 19:51 | HMH.EDGENADL ---
Discharge Plan Disposition Patient Disposition: Home, Self-Care Chief Complaint: Recheck/Abnormal Lab/Rx Prescriptions Prescriptions: No Action buspirone 10 mg tablet 10 mg PO TID Referrals Follow up/Referrals: Farzaneh Philippe APRN [Primary Care Provider] - See instructions Activity Restrictions/Add. Instructions Additional Instructions/Restrictions: Call your family doctor as needed for this visit to the emergency department. Do not submerge For 48 hours. If you have any other concerning signs or symptoms, return to the emergency department for further evaluation. Clinical Impressions Clinical Impression: Encounter for evaluation of wound Print Language Print Language: Hungarian Discharge ED Provider: Lobo Canales General Adult HPI General Chief complaint: Recheck/Abnormal Lab/Rx Stated complaint: fell,cut left hand; may need re-glued Time Seen by Provider: 09/16/24 19:25 Mode of Arrival: Ambulatory Source of Information: Patient Limitations: No Limitations Description of Symptoms (Recalled from ER Triage Doc. by RN): Pt presents to ED for a recheck of L hand lac. Pt states she was glued and steri stripped 2 days ago but she feels like it has opened up more. Pt is A&O*4 and rates pain 0/10. History of Present Illness HPI narrative: Please note that above description of symptoms, in this electronic medical record under categorization of recalled from ER triage doctor by RN are reflective of an initial nursing assessment, however, is not reflective of my full history and physical exam that was personally taken and clarified. Consequentially, this preceding description of symptoms, which may include the patient's categorized chief complaint in the EMR, do not reflect my personal clinical impression, and the ultimate description of history of present illness and patient stated complaints should be deferred to this section of the note. Unless stated otherwise or congruent with this section of the note, additional signs, symptoms, or incongruence should be interpreted as inaccurate with my clinical impression. Related Data Home Medications ?Medication ?Instructions ?Recorded ?Confirmed buspirone 10 mg tablet 10 mg PO TID 09/14/24 09/14/24 Allergies Allergy/AdvReac Type Severity Reaction Status Date / Time ceftriaxone (From Rocephin) Allergy Intermediate Rash Verified 09/14/24 15:00 [facility] Disclaimer: The information contained in this section may have been updated after the patient was seen, as this information can be updated by other users. Medical History Anxiety Urinary tract infection Abnormal uterine bleeding Migraine Scheuermann disease Surgical History History of tympanostomy tube placement History of tonsillectomy Family History Other Thyroid disorder Social History Smoking Status: Current every day smoker tobacco type: e-cigarettes alcohol intake: never substance use type: denies use current occupational status: employed, student and other Travel in the last 8 weeks: None household members: family housing: house number of children: 0 Have you lived/traveled outside US in past 30 days?: No Contact w/someone who lives/traveled outside US past 30 days?: No Exposure to someone with infectious disease in past 14 days?: No Do you have a fever (greater than 100.4 F or 38 C)?: No Have you tested positive for COVID-19: No Exposed to someone with COVID-19 in past 14 days?: No Do you have a sore throat?: No Do you have a cough?: No Do you have any weakness?: No Do you have any diarrhea?: No Are you experiencing any unusual bleeding?: No Do you have any muscle aches/pain?: No Do you have any abdominal pain?: No Are you experiencing loss of taste or smell?: No Other Medical History Have you received the Flu Vaccine for this season: No Have you received the Pneumonia Vaccine: No ROS Obtained: Yes All systems reviewed & no additional complaints except as documented Physical Exam General General appearance: alert Head Head exam: atraumatic and normocephalic Eye Eye exam: Present normal appearance, PERRL and EOMI Neck Neck exam: Present normal inspection, full ROM and trachea midline Respiratory Respiratory exam: Absent respiratory distress, wheezes, stridor, accessory muscle use or prolonged expiratory phase Cardiovascular Cardiovascular exam: Present other (Pulses equal symmetric in upper and lower extremities) Abdominal Exam Abdominal exam: Present soft; Absent distention, tenderness or pulsatile mass Extremities Exam Extremities exam: Present other (Per MDM); Absent edema Neurological Exam Neurological exam: Present alert, oriented X3 and CN II-XII intact; Absent motor sensory deficit Skin Skin exam: Present warm and dry; Absent diaphoresis or erythema Medical Decision Making Medical Records Medical records reviewed: Yes I reviewed the patient's medical records. Screening: Per USPSTF and CDC recommendations, given the prevalence of disease in our region, it is our hospital?s policy to screen for HIV and viral Hepatitis for all patients aged 18 and over and those with ongoing risk factors. Tarun Inquiry Pt receiving controlled substance: No Tarun was queried for this patient: No Vital Signs: 09/16/24 18:22 Temperature 97.9 F Temperature Source Oral Pulse Rate [Left] 74 Respiratory Rate 18 Blood Pressure [Right Arm] 138/68 Blood Pressure Mean [Right Arm] 91 02 Sat by Pulse Oximetry 98 Medical Decision Narrative: This is a 19-year-old female with recent left hand laceration presenting with concern for wound evaluation. Patient states that the Steri-Strips were placed a couple days ago. States that she pulled the Band-Aid off today, the glue and the Steri-Strips came off, wound was open, so came in for further evaluation. States that it does not really hurt, no purulent drainage, etc. States that she is mostly concerned that it popped open. History obtained the patient. On arrival, she is very well-appearing. Seen in triage. She does have a laceration that is a little open, I do not feel that it should be closed given has been open and cut occurred more than 24 hours ago due to risk of infection. Mastisol was applied to both sides of the wound, loosely closed with Steri-Strips. Appropriate for discharge and outpatient follow-up. Quantitative Manager disclaimer Much of this encounter note is an electronic director of strategy & mobile spoken language to printed text. Electronic director of strategy & mobile of the spoken language may permit errors. Although I have reviewed the note, some errors may still exist. Procedures Laceration Laceration 1: Site: hand Side (If applicable): left Size (cm): 1 Description: linear Depth: simple, single layer Skin layer closed with: other (Mastisol and Steri-Strips x 2) Critical Care Critical Care Time Critical Care Time: No
[2024-09-16 20:22] VITALS: BP 134/78; PULSE 98; RESP 20; TEMP 36.6; O2SAT 98
== END 2024-09-16 20:23 | disposition home or self-care (01) ==
PROVIDERS: Emergency Provider Emergency Medicine; PCP Registered Nurse
DX: S61.412D Laceration without foreign body of left hand, subsequent encounter (principal)
CPT/HCPCS: 12001; 99282

== ENCOUNTER 2025-01-27 14:35 | Observation (INO) | payer MEDICAID, SELFPAY ==
--- OUTSIDE RECORDS SUMMARY | 2025-01-10 14:40 | XMS_ITS | Encounter Summary ---
Author Organization [facility] Address [address] [place] [address] Care Team Providers Care Alto Singer Name Role Phone PrinceLissett Zepeda VIRIDIANA - PIPE THREADER Primary Care Provider Encounter Details Date Type Department Care Team (Latest Contact Info) Description 01/10/2025 2:40 PM EDT - 01/10/2025 11:59 PM EDT Hospital Encounter [facility] Draw [address] [place] [address] Discharge Disposition: Home or Self [...] 667.0 <5.0 mIU/mL 01/10/2025 4:04 PM EDT [facility] Comment: Male: <5.0 mIU/ml : Note: HCG Interpretation is based on gestational age vs. LMP. Gestational Age Expected HCG values (mIU/ml) 0.2-1 week 5-50 1-2 weeks 50-500 2-3 weeks 100-5000 3-4 weeks 500-10,000 4-5 weeks 1000-50,000 5-6 weeks 10,000-100,000 6-8 weeks 15,000-200,000 2-3 months 10,000-100,000 01/10/2025 2:37 PM EDT 01/10/2025 3:40 PM EDT us Farzaneh Philippe DIRECT ENTRY MIDWIFE - PIPE THREADER CHEMISTRY ORDERABLES Fin al Result [facility] [address] [place], [place] [id number] [place] [address] documented in this encounter Visit Diagnoses Not on filedocumented in this encounter Care Teams Alto Singer Relationship Specialty Start Date End Date Lissett Mary APRN - CNP [address] [place] [address] PCP - General Nurse Practitioner 10/22/24 documented as of this encounter
[2025-01-27] VITALS (10 sets, daily range): BP systolic 98–136; BP diastolic 58–97; PULSE 54–86; RESP 15–18; TEMP 36.6–36.7; O2SAT 95–100; BMI 28.3
--- NOTE | 2025-01-27 14:42 | US_ITS ---
PROCEDURE INFORMATION: Exam: US Pelvis, Transvaginal, Non-Obstetric Exam date and time: 01/27/2025 3:35 PM Age: 19 years old Clinical indication: Pelvic pain; Additional info: Suspected miscarraige TECHNIQUE: Imaging protocol: Real-time transvaginal pelvic (non-obstetric) ultrasound with image documentation. Transvaginal imaging was used for better evaluation of the endometrium, adnexa, and/or cervix. COMPARISON: CT ABDOMEN PELVIS W CON 04/01/2023 12:00 AM FINDINGS: Uterus: Nonvascular heterogeneous material in cervical canal. Right ovary/adnexa: Right ovary/adnexa unremarkable and measures 3.5 x 2.4 x 2.1 cm. Left ovary/adnexa: Not visualized without obvious adnexal mass. Gestation: No intrauterine pole, gestational or yolk sac identified. Intraperitoneal space: Trace cul-de-sac free fluid collection. IMPRESSION: 1. No intrauterine gestation identified. 2. Heterogeneous material in cervical canal possibly reflecting blood products. 3. Nonvisualized left ovary without obvious adnexal mass.
--- NOTE | 2025-01-27 14:44 | HMH.EDGENADL ---
Discharge Plan Disposition Patient Disposition: Admitted Clinical Impressions Clinical Impression: Abnormal vaginal bleeding, Incomplete Discharge ED Provider: Lobo Canales General Adult HPI <Jovany Sesay MD - Last Filed: 01/27/25 14:48> General Chief complaint: Vaginal Bleeding Stated complaint: 6 weeks Possible Miscarrige Time Seen by Provider: 01/27/25 14:39 History of Present Illness HPI narrative: Patient is a 19-year-old female EGA 6 weeks who presents emergency department for concern for miscarriage. History is obtained by patient at bedside last menstrual period December 10. Over the last 24 hours she has had passage of blood, clots, tissue and crampy lower abdominal pain. No abdominal surgical history no history of bleeding diathesis no blood thinners. No other acute complaints at this time. Please note that above description of symptoms, in this electronic medical record under categorization of recalled from ER triage doctor by RN are reflective of an initial nursing assessment, however, is not reflective of my full history and physical exam that was personally taken and clarified. Consequentially, this preceding description of symptoms, which may include the patient's categorized chief complaint in the EMR, do not reflect my personal clinical impression, and the ultimate description of history of present illness and patient stated complaints should be deferred to this section of the note. Unless stated otherwise or congruent with this section of the note, additional signs, symptoms, or incongruence should be interpreted as inaccurate with my clinical impression. Related Data Previous Rx's ?Medication ?Instructions ?Recorded fluticasone propionate 50 1 spray intranasal DAILY #16 grams 10/08/24 mcg/actuation nasal spray,suspension (Allergy Relief (fluticasone)) ofloxacin 0.3 % ear drops 10 drp otic (ear) DAILY 7 days #5 10/08/24 mL Allergies Allergy/AdvReac Type Severity Reaction Status Date / Time ceftriaxone (From Rocephin) Allergy Intermediate Rash Verified 10/08/24 14:22 PFSH <Jovany Sesay MD - Last Filed: 01/27/25 14:48> COUNTS INCLUDE 234 BEDS AT THE [facility] Disclaimer: The information contained in this section may have been updated after the patient was seen, as this information can be updated by other users. Medical History Anxiety Urinary tract infection Abnormal uterine bleeding Migraine Scheuermann disease Surgical History History of tympanostomy tube placement History of tonsillectomy Family History Other Thyroid disorder Social History Smoking Status: Current every day smoker tobacco type: e-cigarettes alcohol intake: never substance use type: denies use current occupational status: employed, student and other Travel in the last 8 weeks?: None household members: family housing: house number of children: 0 Have you lived/traveled outside US in past 30 days?: No Contact w/someone who lives/traveled outside US past 30 days?: No Exposure to someone with infectious disease in past 14 days?: No Do you have a fever (greater than 100.4 F or 38 C)?: No Have you tested positive for COVID-19?: No Exposed to someone with COVID-19 in past 14 days?: No Do you have a sore throat?: No Do you have a cough?: No Do you have any weakness?: No Do you have any diarrhea?: No Are you experiencing any unusual bleeding?: No Do you have any muscle aches/pain?: No Do you have any abdominal pain?: No Are you experiencing loss of taste or smell?: No Other Medical History Have you received the Flu Vaccine for this season: No Have you received the Pneumonia Vaccine: No <Jovany Sesay MD - Last Filed: 01/27/25 14:48> ROS Obtained: Yes Systems reviewed as appropriate & no additional complaints except as documented Physical Exam <Jovayn Sesay MD - Last Filed: 01/27/25 14:48> General General appearance: alert Comment: Appearing uncomfortable in bed Head Head exam: atraumatic and normocephalic Eye Eye exam: Present PERRL and EOMI ENT ENT exam: Present mucous membranes moist Neck Neck exam: Present normal inspection Chest Chest inspection: Present normal inspection and symmetric chest wall rise Respiratory Respiratory exam: Present normal lung sounds bilaterally; Absent respiratory distress Cardiovascular Cardiovascular exam: Present regular rate and normal rhythm Abdominal Exam Abdominal exam: Present soft and tenderness (Mild, suprapubic) Extremities Exam Extremities exam: Present normal inspection Neurological Exam Neurological exam: Present alert Psychiatric Psychiatric exam: Present normal affect Skin Skin exam: Present warm and dry Medical Decision Making <Jovany Sesay MD - Last Filed: 01/27/25 14:48> Medical Records Screening: Per USPSTF and CDC recommendations, given the prevalence of disease in our region, it is our hospital?s policy to screen for HIV and viral Hepatitis for all patients aged 18 and over and those with ongoing risk factors. Tarun Inquiry Pt receiving controlled substance: No Vital Signs: 01/27/25 14:45 01/27/25 15:00 01/27/25 16:00 Temperature 97.8 F Temperature Source Oral Pulse Rate 66 54 L Pulse Rate [Right Brachial] 59 L Respiratory Rate 15 18 18 Blood Pressure 129/85 113/72 Blood Pressure [Right Arm] 136/97 H Blood Pressure Mean 99 85 Blood Pressure Mean [Right Arm] 110 Blood Pressure Source [Right Arm] Automatic Cuff Blood Pressure Position [Right Arm] Supine 02 Sat by Pulse Oximetry 98 100 100 Oxygen Delivery Method Room Air 01/27/25 16:04 01/27/25 16:40 01/27/25 16:41 Temperature Temperature Source Pulse Rate 64 68 66 Pulse Rate [Right Brachial] Respiratory Rate 18 16 Blood Pressure 114/64 112/66 112/66 Blood Pressure [Right Arm] Blood Pressure Mean 95 Blood Pressure Mean [Right Arm] Blood Pressure Source [Right Arm] Blood Pressure Position [Right Arm] 02 Sat by Pulse Oximetry 100 99 98 Oxygen Delivery Method Room Air 01/27/25 17:00 Temperature Temperature Source Pulse Rate 86 Pulse Rate [Right Brachial] Respiratory Rate Blood Pressure 128/85 Blood Pressure [Right Arm] Blood Pressure Mean Blood Pressure Mean [Right Arm] Blood Pressure Source [Right Arm] Blood Pressure Position [Right Arm] 02 Sat by Pulse Oximetry 95 Oxygen Delivery Method Lab Data Lab Results 01/27/25 14:50: WBC 12.8, RBC 4.38, Hgb 12.8, Hct 37.1, MCV 84.7, MCH 29.2, MCHC 34.5, RDW 12.2, Plt Count 345, MPV 9.0, Neut % (Auto) 83.7 H, Lymph % (Auto) 11.7, Sierra % (Auto) 4.0, Eos % (Auto) 0.1, Baso % (Auto) 0.2, Neut # (Auto) 10.7 H, Lymph # (Auto) 1.5, Sierra # (Auto) 0.5, Eos # (Auto) 0.0, Baso # (Auto) 0.0, Sodium 138, Potassium 4.0, Chloride 103, Carbon Dioxide 24, Anion Gap 15.0, BUN 11, Creatinine 0.70, Estimated Creat Clear 138, Estimated GFR 107, Est GFR ( Amer) 129, Glucose 111 H, Calcium 9.0, Total Bilirubin 0.3, AST 30, ALT 19, Alkaline Phosphatase 67, Total Protein 7.7, Albumin 4.8, Globulin 2.9, Albumin/Globulin Ratio 1.7, HCG, Quant 699 H, HCV Ab LAI w/Rflx PCR Qn Negative, HIV Ag/Ab Combo Qual Negative 01/27/25 15:19: Blood Type O Positive, Antibody Screen Negative 01/27/25 14:50 01/27/25 14:50 Orders (Tests/Meds): ED MEDICATIONS Discontinued Medications Generic Name Dose Route Start Last Admin Trade Name Freq PRN Reason Stop Dose Admin Acetaminophen 1,000 mg 01/27/25 14:42 01/27/25 14:53 Acetaminophen 1,000mg/100ml Vial IV 01/27/25 14:43 1,000 mg ONCE ONE Administration Hydromorphone HCl 0.5 mg 01/27/25 15:53 01/27/25 16:02 Hydromorphone 2mg/Ml Syringe IV 01/27/25 15:54 0.5 mg ONCE ONE Administration Morphine Sulfate 4 mg 01/27/25 14:42 01/27/25 14:53 Morphine 4mg/Ml Syringe IV 01/27/25 14:43 4 mg ONCE ONE Administration Ondansetron HCl 4 mg 01/27/25 17:06 01/27/25 17:23 Ondansetron 4mg/2ml Vial IV 01/27/25 17:07 4 mg ONCE ONE Administration Oxycodone HCl 5 mg 01/27/25 17:01/27/25 17:23 Oxycodone 5mg Immediate Release Tablet PO 01/27/25 17:07 5 mg ONCE ONE Administration ORDERS Category Date Time Status Type and Screen Stat BBK 01/27/25 15:19 Completed US transvaginal Stat Exams 01/27/25 14:42 Completed CBC w/Auto Diff [Complete Blood Count Auto Diff] Stat Lab 01/27/25 14:50 Completed CMP [Comprehensive Metabolic Panel] Stat Lab 01/27/25 14:50 Completed HCG,Quantitative Stat Lab 01/27/25 14:50 Completed HIV Combo Routine Lab 01/27/25 14:50 Completed Hepatitis C Ab Qual. W/ RFX Routine Lab 01/27/25 14:50 Completed UA [Urinalysis and Microscopic] Stat Lab 01/27/25 17:14 Results Urine , HCG Qual. Stat Lab 01/27/25 17:14 Completed Medical Decision Narrative: In summary patient is 19-year-old female with past medical history described above who presents emergency department for evaluation of suspected miscarriage. Patient is hemodynamically stable nontoxic-appearing upon arrival appearing uncomfortable, afebrile. Workup will be conducted with hematologic labs, quantitative hCG, transvaginal ultrasound, type and screen screening for need for RhoGAM administration. Initial inventions include Tylenol, morphine. Workup was largely pending at time of transfer of care to the oncoming physician, Dr. Canales. <Lobo Canales MD - Last Filed: 01/27/25 17:26> Vital Signs: 01/27/25 14:45 01/27/25 15:00 01/27/25 16:00 Temperature 97.8 F Temperature Source Oral Pulse Rate 66 54 L Pulse Rate [Right Brachial] 59 L Respiratory Rate 15 18 18 Blood Pressure 129/85 113/72 Blood Pressure [Right Arm] 136/97 H Blood Pressure Mean 99 85 Blood Pressure Mean [Right Arm] 110 Blood Pressure Source [Right Arm] Automatic Cuff Blood Pressure Position [Right Arm] Supine 02 Sat by Pulse Oximetry 98 100 100 Oxygen Delivery Method Room Air 01/27/25 16:04 01/27/25 16:40 01/27/25 16:41 Temperature Temperature Source Pulse Rate 64 68 66 Pulse Rate [Right Brachial] Respiratory Rate 18 16 Blood Pressure 114/64 112/66 112/66 Blood Pressure [Right Arm] Blood Pressure Mean 95 Blood Pressure Mean [Right Arm] Blood Pressure Source [Right Arm] Blood Pressure Position [Right Arm] 02 Sat by Pulse Oximetry 100 99 98 Oxygen Delivery Method Room Air 01/27/25 17:00 Temperature Temperature Source Pulse Rate 86 Pulse Rate [Right Brachial] Respiratory Rate Blood Pressure 128/85 Blood Pressure [Right Arm] Blood Pressure Mean Blood Pressure Mean [Right Arm] Blood Pressure Source [Right Arm] Blood Pressure Position [Right Arm] 02 Sat by Pulse Oximetry 95 Oxygen Delivery Method Lab Data Lab Results 01/27/25 14:50: WBC 12.8, RBC 4.38, Hgb 12.8, Hct 37.1, MCV 84.7, MCH 29.2, MCHC 34.5, RDW 12.2, Plt Count 345, MPV 9.0, Neut % (Auto) 83.7 H, Lymph % (Auto) 11.7, Sierra % (Auto) 4.0, Eos % (Auto) 0.1, Baso % (Auto) 0.2, Neut # (Auto) 10.7 H, Lymph # (Auto) 1.5, Sierra # (Auto) 0.5, Eos # (Auto) 0.0, Baso # (Auto) 0.0, Sodium 138, Potassium 4.0, Chloride 103, Carbon Dioxide 24, Anion Gap 15.0, BUN 11, Creatinine 0.70, Estimated Creat Clear 138, Estimated GFR 107, Est GFR ( Amer) 129, Glucose 111 H, Calcium 9.0, Total Bilirubin 0.3, AST 30, ALT 19, Alkaline Phosphatase 67, Total Protein 7.7, Albumin 4.8, Globulin 2.9, Albumin/Globulin Ratio 1.7, HCG, Quant 699 H, HCV Ab LAI w/Rflx PCR Qn Negative, HIV Ag/Ab Combo Qual Negative 01/27/25 15:19: Blood Type O Positive, Antibody Screen Negative Orders (Tests/Meds): ED MEDICATIONS Discontinued Medications Generic Name Dose Route Start Last Admin Trade Name Mel PRN Reason Stop Dose Admin Acetaminophen 1,000 mg 01/27/25 14:42 01/27/25 14:53 Acetaminophen 1,000mg/100ml Vial IV 01/27/25 14:43 1,000 mg ONCE ONE Administration Hydromorphone HCl 0.5 mg 01/27/25 15:53 01/27/25 16:02 Hydromorphone 2mg/Ml Syringe IV 01/27/25 15:54 0.5 mg ONCE ONE Administration Morphine Sulfate 4 mg 01/27/25 14:42 01/27/25 14:53 Morphine 4mg/Ml Syringe IV 01/27/25 14:43 4 mg ONCE ONE Administration Ondansetron HCl 4 mg 01/27/25 17:06 01/27/25 17:23 Ondansetron 4mg/2ml Vial IV 01/27/25 17:07 4 mg ONCE ONE Administration Oxycodone HCl 5 mg 01/27/25 17:01/27/25 17:23 Oxycodone 5mg Immediate Release Tablet PO 01/27/25 17:07 5 mg ONCE ONE Administration ORDERS Category Date Time Status Type and Screen Stat BBK 01/27/25 15:19 Completed US transvaginal Stat Exams 01/27/25 14:42 Completed CBC w/Auto Diff [Complete Blood Count Auto Diff] Stat Lab 01/27/25 14:50 Completed CMP [Comprehensive Metabolic Panel] Stat Lab 01/27/25 14:50 Completed HCG,Quantitative Stat Lab 01/27/25 14:50 Completed HIV Combo Routine Lab 01/27/25 14:50 Completed Hepatitis C Ab Qual. W/ RFX Routine Lab 01/27/25 14:50 Completed UA [Urinalysis and Microscopic] Stat Lab 01/27/25 17:14 Results Urine , HCG Qual. Stat Lab 01/27/25 17:14 Completed Medical Decision Narrative: In summary patient is 19-year-old female with past medical history described above who presents emergency department for evaluation of suspected miscarriage. Patient is hemodynamically stable nontoxic-appearing upon arrival appearing uncomfortable, afebrile. Workup will be conducted with hematologic labs, quantitative hCG, transvaginal ultrasound, type and screen screening for need for RhoGAM administration. Initial inventions include Tylenol, morphine. Workup was largely pending at time of transfer of care to the oncoming physician, Dr. Canales. Parker: I assumed primary responsibility for this patient after signout from previous physician. On my evaluation, patient in pain. Independent interpretation of labs with nonactionable findings. hCG 700. Urinalysis unremarkable. Patient was given IV Dilaudid. This seemed to help pain a little bit. Pain continued, given oxycodone and Zofran. I talked to hospital GUIDE DELEGATE on-call after talking to patient. Patient states she feels uncomfortable going home with the amount of bleeding she is having as she does not have parents at home to help her and she would be at home alone. States that when she sees blood she passes out and is fearful that she will have a complication. Because of this, I talked to Dr. Saucedo. She was gracious enough to admit patient for observation overnight to keep eyes on her for pain control. Critical Care <Jovany Sesay MD - Last Filed: 01/27/25 14:48> Critical Care Time Critical Care Time: No
[2025-01-27] MEDS: MORPHINE 4MG/ML SYRINGE 4 MG IV (14:53)
[2025-01-27] MEDS: ACETAMINOPHEN 1,000MG/100ML VIAL 1000 MG IV (14:53)
[2025-01-27 15:02] LABS: Albumin Level 4.8 g/dl (3.5-5.0); Chloride 103 mmol/L (98-107); Potassium 4.0 mmoL/L (3.5-5.1); Sodium 138 mmol/L (136-145)
[2025-01-27 15:03] LABS: Hematocrit 37.1 % (37.0-47.0); Hemoglobin 12.8 g/dL (12.2-16.2); Immature Granulocytes % 0.3 %; Mean Corpuscular HGB Conc 34.5 g/dL (31.8-35.4); Mean Corpuscular Hemoglobin 29.2 pg (27.0-31.2); Mean Corpuscular Volume 84.7 fl (81-99); Nucleated Red Blood Cells % 0 %; Platelet Count 345 K/mm3 (142-424); Red Blood Count 4.38 M/mm3 (4.20-5.40); Red Cell Distribution Width-SD 37.2 fL; White Blood Count 12.8 K/mm3 (4.5-13.0)
[2025-01-27 15:05] LABS: Alanine Aminotransferase 19 U/L (12-78); Albumin/Globulin Ratio 1.7 (1.1-1.8); Alkaline Phosphatase 67 U/L (38-126); Anion Gap 15.0 mEq/L (5-15); Aspartate Amino Transferase 30 U/L (14-36); Bilirubin,Total 0.3 mg/dl (0.2-1.3); Blood Urea Nitrogen 11 mg/dl (7-17); Carbon Dioxide 24 mmol/L (22.0-30.0); Creatinine Clearance Estimated 138 mL/min (50-200); Creatinine,Serum 0.70 mg/dl (0.52-1.04); Estimated Glomerular Filt Rate 107 ml/min (>60); GFR (African American) 129 ML/MIN (>60); Globulin 2.9 g/dL (1.3-3.2); Total Protein,Serum 7.7 g/dl (6.3-8.2)
[2025-01-27 15:06] LABS: Calcium 9.0 mg/dl (8.4-10.2); Glucose 111 mg/dl (74-100)
--- OUTSIDE RECORDS SUMMARY | 2025-01-27 15:16 | XMS_ITS | Clinical Summary ---
Author Organization [facility] Address [address] [place] [address] Care Team Providers Care Rail Car Painter/Sandblaster Name Role Phone Lissett Mary AVIONICS REPAIR TECHNICIAN - KITCHEN HELPER Primary Care Provider Encounters Date Type Department Care Team Description 01/10/2025 2:40 PM EDT - 01/10/2025 11:59 PM EDT Hospital Encounter [facility] Lab Draw [address] [place] [address] Discharge Disposition: Home or Self Care from Last 3 Months Social History Tobacco Use Types Packs/Day Years Used Date Smoking Tobacco: Never Assessed Comments Unknown Sex and Gender Information Value Date Recorded Sex Assigned at Not on file Legal Sex Female 5:23 PM EDT Gender Identity Not on file Sexual Orientation Not on file Plan of Treatment Health Maintenance Due Date Last Done Comments DTaP/Tdap/Td vaccine (1 - Tdap) 2023 COVID-19 Vaccine (2023-2 5 season) 2024 Flu vaccine (Season Ended) 2025 Polio vaccine Aged Out No longer elig ible based on patient's age to complete this topic Procedures Procedure Name Priority Date/Time Associated Diagnosis Comments HCG, QUANTITATIVE, Routine 01/10/2025 2:37 PM EDT from Last 3 Months Results * HCG, Quantitative, (01/10/2025 2:37 PM EDT) hCG Quant 667.0 <5.0 mIU/mL 01/10/2025 4:04 PM EDT [facility] Comment: Male: <5.0 mIU/ml : Note: HCG Interpretation is based on gestational age vs. LMP. Gestational Age Expected HCG values (mIU/ml) 0.2-1 week 5-50 1-2 weeks 50-500 2-3 weeks 100-5000 3-4 weeks 500-10,000 4-5 weeks 1000-50,000 5-6 weeks 10,000-100,000 6-8 weeks 15,000-200,000 2-3 months 10,000-100,000 01/10/2025 2:37 PM EDT 01/10/2025 3:40 PM EDT us Farzaneh Philippe APRN - KITCHEN HELPER CHEMISTRY ORDERABLES Fin al Result [facility] [address] [place], [place] [id number] [place] [address] from Last [address] [place] [phone] [employer] [place] Care Teams Rail Car Painter/Sandblaster Relationship Specialty Start Date End Date Lissett Mary APRN - CNP [address] [address] PCP - General Nurse Practitioner 10/22/24
--- OUTSIDE RECORDS SUMMARY | 2025-01-27 15:16 | XMS_ITS | Clinical Summary ---
Author Organization [facility] Address [address] [place] [address] Care Team Providers Care Rangeland Management Specialist Name Role Phone Tyron Lang MD Primary Care Provider [phone] Allergies Active Allergy Reactions Criticality Noted Date Comments Doxycycline Rash Low 05/08/2019 Ceftriaxone Rash Low 08/04/2021 Medications sertraline (Zoloft) 25 MG tablet Take 25 mg by mouth 1 (one) time each day. Active oxyCODONE (Roxicodone) 5 MG immediate release tablet Take 1 tablet (5 mg total) by mouth every 4 (four) hours if needed for severe pain (1-2 tabs every 4 hours as needed for first 2 days). 56 tablet 08/11/2021 Active Active Problems Problem Noted Date Diagnosed Date S/P ACL reconstruction 08/18/2021 Rupture of anterior cruciate ligament of right k nee 08/02/2021 Overview (08/02/2021): Added automatically from request for surgery [id number] Acute pain of right knee 08/02/2021 Acute medial meniscus tear of right knee 022 Family History Medical History Relation Name Comments Hypertension Father Conversions - Other Mother Mitral v alve prolapse, nonrheumatic Diabetes Mother Heart defect Mother Thyroid disease Mother Relation Name Status Comments Father Mother Social History Tobacco Use Types Packs/Day Years Used Date Smoking Tobacco: Never Smokeless Tobacco: Never Alcohol Use Standard Drinks/Week Comments Never 0 (1 standard drink = 0.6 oz pur e alcohol) PHQ-2 Answer Date Recorded Patient Health Questionnaire-2 Score 0 08/02/2021 Comments No Sex and Gender Information Value Date Recorded Sex Assigned at Not on file Legal Sex Female 8:01 PM EDT Gender Identity Not on file Sexual Orientation Not on file Last Filed Vital Signs Vital Sign Reading Time Taken Comments Blood Pressure 101/60 08/12/2021 10:45 AM EST Pulse 61 08/12/2021 10:45 AM EST Temperature 36.3 C (97.3 F) 08/12/2021 10:15 AM EST Respiratory Rate 15 08/12/2021 10:45 AM EST Oxygen Saturation 98% 08/12/2021 10:45 AM EST Inhaled Oxygen Concentration - - Weight 60.9 kg (134 lb 4.2 oz) 08/12/2021 6:13 A M EST Height 157.5 cm (5' 2 ) 08/12/2021 6:13 AM EST Body Mass Index 24.56 08/12/2021 6:13 AM EST Plan of Treatment Health Maintenance Due Date Last Done Comments [facility]-HIV Screening 2004 [facility]-Hepatitis C Screening 2004 [facility]-Infant/Child/Adol SDOH Screenings 2004 HPV Vaccines (1 - 3-dose series) 2019 [facility]-Depression Screening 08/02/2022 08/02/2021 UKY- SDOH Screenings 2022 [facility]Y-Adult SDOH Screenings 2022 [id number]-64 Vaccine ( - season) 2024 [facility]Y-Influenza Vaccine (Season Ended) 2025 [facility]Y-DTaP,Tdap,and Td Vaccines (2 - Td or Tdap) 02/11/2026 02/12/2016 UKY-Zoster Vaccines (1 of 2) 2054 11/03/2008, 08/09/2005 UKY-HIB Vaccines Completed 08/09/2005, , 2004 [facility]-Hepatitis B Vaccines Completed 006, 2004, 2004 [facility]Y-IPV Vaccines Completed 11/03/2008, , 01/13/2005, Additional history exists [facility]Y-Varicella Vaccines Completed 11/03/2008, 2005 [facility]Y-Hepatitis A Vaccines Completed 02/21/2018, 01/28 [facility]Y-Pneumococcal Vaccine: Pediatrics (0 to 5 Years) and At-Risk Patients (6 to 49 Years) Aged Out No longer eligible based on patient's age to complete this topic [facility]Y-Rotavirus Vaccines Aged Out No lo nger eligible based on patient's age to complete this topic Medical Devices Implanted Type Area Change Management Director Device Identifier Shelf Expiration Date Model / Serial / Lot Hip Stem Fast Fix 360 - [id number] - [id number] Implanted:Qty: 2 on 08/12/2021 by Myron Gipson MD at [facility] [place] Right: Knee [employer] (Acu[employer])-[id number] 05/18/2024 [id number] / [id number] / [id number] Screw 8mm Cannu-Flex Silk Interference 20mm Strl - [id number] - [id number] Implanted:Qty: 1 on 08/12/2021 by Myron Gipson MD at [facility] [place] Right: Knee [employer] ([employer])-[id number] 12/17/2024 [id number] / [id number] / [id number] Screw 7mm Cannu-Flex Silk Interference 20mm Strl - [id number] - [id number] Implanted:Qty: 1 on 08/12/2021 by Myron Gipson MD at [facility] [place] Right: Knee [employer] (Acu[employer])-[id number] 01/19/2026 [id number] / [id number] / [id number] [place] [id number] ANTHEM K AND K INSURANCE K AND K INSURANCE ANTHEM Care Teams Rangeland Management Specialist Relationship Specialty Start Date End Date Tyron Lang MD [address] [facility] [address] [place] [phone] PCP - General 12/11/20
--- NOTE | 2025-01-27 15:49 | PC.NURSE ---
Pt back from US
[2025-01-27] MEDS: HYDROMORPHONE 2MG/ML SYRINGE 0.5 MG IV (16:02)
[2025-01-27 16:36] LABS: Hepatitis C Ab Qual. W/ RFX NEGATIVE (Negative)
--- NOTE | 2025-01-27 17:07 | PC.NURSE ---
I notified HS of the need for a bed to admit the pt to OB by
[2025-01-27 17:20] LABS: Microscopic, Urine URINE MICROSCOPIC (MICROSCOPIC)
--- NOTE | 2025-01-27 17:20 | PC.NURSE ---
Report given to WOLF Carrillo.
--- NOTE | 2025-01-27 17:20 | PC.NURSE ---
Report called to Eloina Mcgregor RN
[2025-01-27 17:21] LABS: Bilirubin,Urine Negative (Negative); Color,Urine YELLOW (Yellow); Glucose,Urine (UA) Negative (Negative); Ketones,Urine Negative (Negative); Leukocyte Esterase,Urine Negative (Negative); PH,Urine 6.0 (5.0-8.5); Protein,Urine Negative (Negative); Specific Gravity, Urine <= 1.005 (1.005-1.030); Urobilinogen,Urine 0.2 EU/dl (0.2)
--- NOTE | 2025-01-27 17:22 | PC.NURSE ---
Report received from WOLF Pennington.
[2025-01-27] MEDS: OXYCODONE 5MG IMMEDIATE RELEASE TABLET 5 MG PO ×2 (17:23→21:35)
[2025-01-27] MEDS: ONDANSETRON 4MG/2ML VIAL 4 MG IV (17:23)
[2025-01-27 17:24] LABS: Urine Pregnancy, HCG Qual. Positive (Negative)
--- NOTE | 2025-01-27 17:32 | PC.NURSE ---
Pt arrived to unit as a direct admit from ER. Routine POC and admission procedures explained. V/U. Denies any questions or concerns at this time. She is accompanied by her sig other.
[2025-01-27 17:35] LABS: Bacteria,Urine Trace /lpf; WBC,Urine Occasional #/hpf (0-3)
--- NOTE | 2025-01-27 18:00 | PC.NURSE ---
Pt given mesh panties and cachorro-pads and instructed to let staff see each pad when she changes them. Verbalized understanding.
[2025-01-27] MEDS: IBUPROFEN 800 MG TABLET PO (18:35)
--- NOTE | 2025-01-27 19:02 | PC.NURSE ---
Report given to WOFL Carrillo.
[2025-01-27] MEDS: PROMETHAZINE HCL 25MG/ML 1ML VIAL 12.5 MG IV (21:33)
[2025-01-27] MEDS: ACETAMINOPHEN 500MG TAB 1000 MG PO (21:34)
[2025-01-28 01:00] VITALS: BP 98/62; PULSE 70; RESP 16; TEMP 36.7; O2SAT 99
[2025-01-28] MEDS: ONDANSETRON 4MG/2ML VIAL 4 MG IV ×2 (03:02→12:06)
[2025-01-28] MEDS: IBUPROFEN 800 MG TABLET PO (03:02)
[2025-01-28 05:00] VITALS: BP 97/54; PULSE 68; RESP 16; TEMP 36.7; O2SAT 100
[2025-01-28] MEDS: ACETAMINOPHEN 500MG TAB 1000 MG PO ×2 (05:30→12:05)
[2025-01-28] MEDS: OXYCODONE 5MG IMMEDIATE RELEASE TABLET 5 MG PO (08:12)
[2025-01-28 08:14] VITALS: BP 71/45; PULSE 67; RESP 16; TEMP 36.7; O2SAT 97
--- NOTE | 2025-01-28 08:22 | PC.NURSE ---
Pt was asleep in bed with her boyfriend and awaken for assessment. She was sound asleep and when asked about any pain, she rated her pain at 7/10. Pt medicated with Oxycodone 5mg PO.
--- NOTE | 2025-01-28 12:51 | P.HPDS_ITS ---
General Admission date:: 01/27/25 Discharge date: 01/28/25 *Admission Date: 01/27/25 *Chief complaint: Vaginal bleeding in early *History of present illness: Ms Africa Mary is a 19-year-old female at approximately 6 weeks who presented to the emergency department for vaginal bleeding. LMP 12/10/24. She reports vaginal bleeding with passage of clots and associated lower abdominal pain and cramping that started 24 hours prior to going to the ED. Denies fever/chills, chest pain and shortness of breath. No lightheadedness or dizziness. [facility] Disclaimer: The information contained in this section may have been updated after the patient was seen, as this information can be updated by other users. Medical History (Updated 01/27/25 @ 18:04 by Amira Kirby RN) Heart murmur Heart murmur Anxiety Urinary tract infection Abnormal uterine bleeding Migraine Scheuermann disease Surgical History History of tympanostomy tube placement History of tonsillectomy Family History Other Thyroid disorder Social History (Updated 01/27/25 @ 18:03 by Amira Kirby RN) Smoking Status: Current every day smoker tobacco type: e-cigarettes alcohol intake: never substance use type: denies use current occupational status: employed, student and other Travel in the last 8 weeks?: None household members: family housing: house number of children: 0 Have you lived/traveled outside US in past 30 days?: No Contact w/someone who lives/traveled outside US past 30 days?: No Exposure to someone with infectious disease in past 14 days?: No Do you have a fever (greater than 100.4 F or 38 C)?: No Have you tested positive for COVID-19?: No Exposed to someone with COVID-19 in past 14 days?: No Do you have a sore throat?: No Do you have a cough?: No Do you have any weakness?: No Do you have any diarrhea?: No Are you experiencing any unusual bleeding?: No Do you have any muscle aches/pain?: No Do you have any abdominal pain?: No Are you experiencing loss of taste or smell?: No Other Medical History Have you received the Flu Vaccine for this season: Yes Have you received the Pneumonia Vaccine: No Review of Systems Review of Systems Review of systems:: pertinent systems reviewed and negative unless documented below *Genitourinary Comments: + pelvic cramping, vaginal bleeding in early Exam Data for Last 24 hours Vital signs and Labs for Last 24 Hours: Temp Pulse Resp BP Pulse Ox O2 Del Method 98.1 F 67 16 71/45 L 97 Room Air 01/28/25 08:14 01/28/25 08:14 01/28/25 08:14 01/28/25 08:14 01/28/25 08:14 01/28/25 08:14 Laboratory Results - last 24 hr 01/27/25 14:50: WBC 12.8, RBC 4.38, Hgb 12.8, Hct 37.1, MCV 84.7, MCH 29.2, MCHC 34.5, RDW 12.2, Plt Count 345, MPV 9.0, Neut % (Auto) 83.7 H, Lymph % (Auto) 11.7, [place] % (Auto) 4.0, Eos % (Auto) 0.1, Baso % (Auto) 0.2, Neut # (Auto) 10.7 H, Lymph # (Auto) 1.5, [place] # (Auto) 0.5, Eos # (Auto) 0.0, Baso # (Auto) 0.0, Sodium 138, Potassium 4.0, Chloride 103, Carbon Dioxide 24, Anion Gap 15.0, BUN 11, Creatinine 0.70, Estimated Creat Clear 138, Estimated GFR 107, Est GFR ( Amer) 129, Glucose 111 H, Calcium 9.0, Total Bilirubin 0.3, AST 30, ALT 19, Alkaline Phosphatase 67, Total Protein 7.7, Albumin 4.8, Globulin 2.9, Albumin/Globulin Ratio 1.7, HCG, Quant 699 H, HCV Ab LAI w/Rflx PCR Qn Negative, HIV Ag/Ab Combo Qual Negative 01/27/25 15:19: Blood Type O Positive, Antibody Screen Negative 01/27/25 17:14: Urine Color Yellow, Urine Appearance Clear, Urine pH 6.0, Ur Specific [place] <= 1.005, Urine Protein Negative, Urine Glucose (UA) Negative, Urine Ketones Negative, Urine Blood 1+ A, Urine Nitrate Negative, Urine Bilirubin Negative, Urine Urobilinogen 0.2, Ur Leukocyte Esterase Negative, Urine WBC Occasional, Ur Squamous Epith Cells 3-5, Urine Bacteria Trace, Urine HCG, Qual Positive I & O for Last 24 hours: Intake & Output 01/25/25 01/26/25 01/27/25 01/28/25 23:59 23:59 23:59 23:59 Output Total 0 / 0 Balance 0 / 0 Weight 150 lb Constitutional Constitutional: no acute distress and cooperative *Routine HEENT Exam Head: Present normocephalic and atraumatic Eye: Absent conjunctivae pink ENT: Present mucous membranes moist *Routine Neck Exam Neck: Present full ROM *Routine Respiratory Exam Respiratory: Present CTA bilaterally and normal respiratory effort *Routine Cardiovascular Exam Cardiovascular: Present RRR *Routine Abdominal Exam Abdominal: Present soft and normoactive bowel sounds; Absent tenderness or distended *Routine Rectal Exam Rectal:: deferred *Routine Genitalia Exam Genitalia:: deferred *Routine Extremities Exam Extremities: Present full ROM; Absent edema or calf tenderness *Routine Neurological Exam Neurological: Present alert, moving all extremities and normal speech Routine Psychiatric Exam Psychiatric: Present normal affect and cooperative Meds Home Medications and Allergies Home Medications ?Medication ?Instructions ?Recorded ?Confirmed ?Type ibuprofen 800 mg tablet 800 mg PO Q8H #20 tabs 01/28 Rx New Prescriptions to Start Prescriptions: Carito Tapia Allergies Allergy/AdvReac Type Severity Reaction Status Date / Time ceftriaxone (From Rocephin) Allergy Intermediate Rash Verified 10/08/24 14:22 Hospital Course Hospital Course Hospital Course: Ms Africa Mray is a 19-year-old female at approximately 6 weeks who presented to the emergency department for vaginal bleeding. LMP 12/10/24. She reports vaginal bleeding with passage of clots and associated lower abdominal pain and cramping that started 24 hours prior to going to the ED. Denies fever/chills, chest pain and shortness of breath. No lightheadedness or dizziness. Pelvic ultrasound demonstrated Uterus: Nonvascular heterogeneous material in cervical canal. Right ovary/adnexa: Right ovary/adnexa unremarkable and measures 3.5 x 2.4 x 2.1 cm. Left ovary/adnexa: Not visualized without obvious adnexal mass. Gestation: No intrauterine pole, gestational or yolk sac identified. Intraperitoneal space: Trace cul-de-sac free fluid collection. Beta hcg quant was 699. Remainder of labs within normal limits She was kept overnight for observation. She admits to mild cramping controlled with NSAIDs and vaginal spotting. She feels comfortable going home. She was discharged with instructions to fo Results Data Completed and Pending Labs on day of discharge: Labs from last 24 hours 01/27/25 01/27/25 01/27/25 17:14 15:19 14:50 WBC 12.8 RBC 4.38 Hgb 12.8 Hct 37.1 MCV 84.7 MCH 29.2 MCHC 34.5 RDW 12.2 Plt Count 345 MPV 9.0 Neut % (Auto) 83.7 H Lymph % (Auto) 11.7 Dakota % (Auto) 4.0 Eos % (Auto) 0.1 Baso % (Auto) 0.2 Neut # (Auto) 10.7 H Lymph # (Auto) 1.5 [place] # (Auto) 0.5 Eos # (Auto) 0.0 Baso # (Auto) 0.0 Sodium 138 Potassium 4.0 Chloride 103 Carbon Dioxide 24 Anion Gap 15.0 BUN 11 Creatinine 0.70 Estimated Creat Clear 138 Estimated GFR 107 Est GFR ( Amer) 129 Glucose 111 H Calcium 9.0 Total Bilirubin 0.3 AST 30 ALT 19 Alkaline Phosphatase 67 Total Protein 7.7 Albumin 4.8 Globulin 2.9 Albumin/Globulin Ratio 1.7 HCG, Quant 699 H Urine Color Yellow Urine Appearance Clear Urine pH 6.0 Ur Specific [place] <= 1.005 Urine Protein Negative Urine Glucose (UA) Negative Urine Ketones Negative Urine Blood 1+ A Urine Nitrate Negative Urine Bilirubin Negative Urine Urobilinogen 0.2 Ur Leukocyte Esterase Negative Urine WBC Occasional Ur Squamous Epith Cells 3-5 Urine Bacteria Trace Urine HCG, Qual Positive HCV Ab LAI w/Rflx PCR Qn Negative HIV Ag/Ab Combo Qual Negative Blood Type O Positive Antibody Screen Negative Discharge Plan Disposition Patient Disposition: Home, Self-Care Condition: Good Follow up Plan Prescriptions/Medication Reconciliation: New ibuprofen 800 mg Tablet 800 mg PO Q8H Qty: 20 0RF Problem Reconciliation Problems Reviewed?: Yes Patient Discharge Instructions ACTIVITY: Limited activity DIET: continue same diet and regular diet Patient Instructions: Dealing With Miscarriage, DI for Miscarriage Print Language: Romansh Providers Primary Care Provider: Farzaneh Philippe Admit Provider: Megan Saucedo Attending Provider: Megan Saucedo
--- NOTE | 2025-01-28 13:10 | PC.NURSE ---
Verbalized understanding of discharge instructions. Discharged ambulatory per pt choice. Pt refused wc.
== END 2025-01-28 13:15 | disposition home or self-care (01) ==
LOC: ER 15:41 → OB 17:18
PROVIDERS: Emergency Medicine; Admitting Provider Obstetrics & Gynecology; Emergency Provider Emergency Medicine; PCP Registered Nurse; Visit Provider Obstetrics & Gynecology
DX: O03.1 Delayed or excessive hemorrhage following incomplete spontaneous abortion (principal); Z88.1 Allergy status to other antibiotic agents; Z3A.01 Less than 8 weeks gestation of pregnancy
CPT/HCPCS: 36415; 76830; 80053; 81001; 81025; 84702; 85025; 86803; 86850; 87389; 96374; 96375; 96376; 99285; G0378; J0131; J1171; J2270; J2405; J2550

== ENCOUNTER 2025-02-13 02:31 | Emergency (ER) | payer MEDICAID, SELFPAY ==
--- OUTSIDE RECORDS SUMMARY | 2025-01-10 14:40 | XMS_ITS | Encounter Summary ---
Author Organization [facility] Address [address], [address] [place] [address] Care Team Providers Care Executive Pastry Chef Name Role Phone RaviLissett sotelo VIRIDIANA - MORTGAGE FUNDER Primary Care Provider Encounter Details Date Type Department Care Team (Latest Contact Info) Description 01/10/2025 2:40 PM EDT - 01/10/2025 11:59 PM EDT Hospital Encounter [facility] [address] [place] [address] Discharge Disposition: Home or Self Care Social History Tobacco Use Types Packs/Day Years Used Date Smoking Tobacco: Never Assessed Comments Unknown Sex and Gender Information Value Date Recorded Sex Assigned at Not on file Legal Sex Female 5:23 PM EDT Gender Identity Not on file Sexual Orientation Not on file documented as of this encounter Plan of Treatment Not on file documented as of this encounter Procedures Procedure Name Priority Date/Time Associated Diagnosis Comments HCG, QUANTITATIVE, Routine 01/10/2025 2:37 PM EDT documented in this encounter Results * HCG, Quantitative, (01/10/2025 2:37 PM EDT) hCG Quant 667.0 <5.0 mIU/mL 01/10/2025 4:04 PM EDT [facility] Comment: Male: <5.0 mIU/ml : Note: HCG Interpretation is based on gestational age vs. LMP. Gestational Age Expected HCG values (mIU/ml) 0.2-1 week 5-50 1-2 weeks 50-500 2-3 weeks 100-5000 3-4 weeks 500-10,000 4-5 weeks 1000-50,000 5-6 weeks 10,000-100,000 6-8 weeks 15,000-200,000 2-3 months 10,000-100,000 01/10/2025 2:3 7 PM EDT 01/10/2025 3:40 PM EDT us Farzaneh Philippe ORTHOTIC PRACTITIONER - MORTGAGE FUNDER CHEMISTRY ORDERABLES Fin al Result [facility] [address] [phone] documented in this encounter Visit Diagnoses Not on filedocumented in this encounter Care Teams Executive Pastry Chef Relationship Specialty Start Date End Date Lissett Mary APRN - CNP [address] [place] [address] PCP - General Nurse Practitioner 10/22/24 documented as of this encounter
[2025-02-13 02:39] VITALS: BP 118/71; PULSE 98; O2SAT 100
[2025-02-13 02:40] VITALS: BP 118/71; PULSE 98; RESP 16; TEMP 36.8; O2SAT 99; BMI 29.2
[2025-02-13 02:43] LABS: Microscopic, Urine URINE MICROSCOPIC (MICROSCOPIC)
[2025-02-13 02:47] LABS: Bilirubin,Urine Negative (Negative); Color,Urine YELLOW (Yellow); Glucose,Urine (UA) Negative (Negative); Ketones,Urine Negative (Negative); Leukocyte Esterase,Urine 2+ (Negative); PH,Urine 6.0 (5.0-8.5); Protein,Urine 2+ (Negative); Specific Gravity, Urine 1.015 (1.005-1.030); Urobilinogen,Urine 0.2 EU/dl (0.2)
[2025-02-13 02:50] LABS: Urine Pregnancy, HCG Qual. Negative (Negative)
[2025-02-13 02:55] LABS: Bacteria,Urine 1+ /lpf; RBC,Urine 20-50 #/hpf (0-3); WBC,Urine 50-100 #/hpf (0-3)
[2025-02-13] MEDS: ACETAMINOPHEN 500MG TAB 1000 MG PO (02:55)
[2025-02-13] MEDS: IBUPROFEN 600 MG TABLET PO (02:55)
[2025-02-13] MEDS: SULFA/TRIMETHOPRIM 1 TABLET 1 EACH PO (03:09)
--- OUTSIDE RECORDS SUMMARY | 2025-02-13 03:15 | XMS_ITS | Clinical Summary ---
Author Organization [facility] Address [address] [place] [address] Care Team Providers Care Skilled Helper Name Role Phone Tyron Lang MD Primary Care Provider [phone] Allergies Active Allergy Reactions Criticality Noted Date [...] (08/02/2021): Added automatically from request for surgery [id number] Acute pain of right knee 08/02/2021 Acute [...] SDOH Screenings 2022 [facility]-Adult SDOH Screenings 2022 TAK-HIUCO-97 Vaccine ( - season) 2024 [facility]-Influenza Vaccine (#1) 2025 [facility]-DTaP,Tdap,and Td Vaccines (2 - Td [...] this topic Medical Devices Implanted Type Area Corn Popper Device Identifier Shelf Expiration Date Model / Serial / Lot Hip Stem Fast Fix 360 - [id number] - [id number] Implanted:Qty: 2 on 08/12/2021 by Myron Gipson MD at [facility] [place] Right: Knee [employer] ([employer])-[id number] 05/18/2024 [id number] / [id number] / [id number] Screw 8mm Cannu-Flex Silk Interference 20mm Strl - [id number] - [id number] Implanted:Qty: 1 on 08/12/2021 by Myron Gipson MD at [facility] [place] Right: Knee [employer] ([employer])-[id number] 12/17/2024 [id number] / [id number] / [id number] Screw 7mm Cannu-Flex Silk Interference 20mm Strl - [id number] - [id number] Implanted:Qty: 1 on 08/12/2021 by Myron Gipson MD at [facility] [place] Right: Knee [employer] ([employer])-[id number] 01/19/2026 [id number] / [id number] / [id number] [place] [id number] ANTHEM K AND K INSURANCE K AND K INSURANCE ANTHEM Care Teams Skilled Helper Relationship Specialty Start Date End Date Tyron Lang MD [address] [facility] [address] [place] [phone] PCP - General 12/11/20
--- OUTSIDE RECORDS SUMMARY | 2025-02-13 03:15 | XMS_ITS | Clinical Summary ---
Author Organization [facility] Address [address], [address] [place] [address] Care Team Providers Care Form Tamper Name Role Phone PrinceLissett Zepeda VIRIDIANA - SAW CLEANER Primary Care Provider Encounters Date Type Department Care Team Description 01/10/2025 2:40 PM EDT - 01/10/2025 11:59 PM EDT Hospital Encounter [facility] Lab Draw [address] [place] [address] Discharge Disposition: Home or Self [...] Vaccine (2023-2 5 season) 2024 Flu vaccine (#1) 02/28/2025 Polio vaccine Aged Out No longer elig ible based on patient's age to complete this topic Procedures Procedure Name Priority Date/Time Associated Diagnosis Comments HCG, QUANTITATIVE, Routine 01/10/2025 2:37 PM EDT from Last 3 Months Results * HCG, Quantitative, (01/10/2025 2:37 PM EDT) hCG Quant 667.0 <5.0 mIU/mL 01/10/2025 4:04 PM EDT [facility] Comment: Male: <5.0 mIU/ml : Note: HCG Interpretation is based on gestational age vs. LMP. Gestational Age Expected HCG values (mIU/ml) 0.2-1 week 5-50 1-2 weeks 50-500 2-3 weeks 100-5000 3-4 weeks 500-10,000 4-5 weeks 1000-50,000 5-6 weeks 10,000-100,000 6-8 weeks 15,000-200,000 2-3 months 10,000-100,000 01/10/2025 2:37 PM EDT 01/10/2025 3:40 PM EDT us Farzaneh Philippe APRN - SAW CLEANER CHEMISTRY ORDERABLES Fin al Result [facility] [address] [place], [place] [address] [phone] from Last 3 Months Insurance [employer] MEDICAID [place] Care Teams Form Tamper Relationship Specialty Start Date End Date Lissett Mary APRN - CNP [address] [id number] PCP - General Nurse Practitioner 10/22/24
[2025-02-13 03:17] VITALS: BP 120/72; PULSE 88; RESP 16; TEMP 36.6; O2SAT 98
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
== END 2025-02-13 03:20 | disposition home or self-care (01) ==
PROVIDERS: Emergency Provider Emergency Medicine; PCP Registered Nurse
DX: N39.0 Urinary tract infection, site not specified (principal); N12 Tubulo-interstitial nephritis, not specified as acute or chronic; F17.290 Nicotine dependence, other tobacco product, uncomplicated
CPT/HCPCS: 81001; 81025; 87077; 87086; 87491; 87591; 87661; 99283

== ENCOUNTER 2025-05-05 19:34 | Emergency (ER) | payer MEDICAID, SELFPAY ==
--- OUTSIDE RECORDS SUMMARY | 2025-02-04 10:00 | XMS_ITS ---
Author Organization [facility] [place] Address [address] [place] [address] Care Team Providers Care Camp Attendant Name Role Phone Lisa Dye Unavailable [phone] Results Component Value Reference Range Notes *US OB Complete Transabdomin al/Vaginal Reviewed date:02/06/2025 08:59:42 AM Interpretation: Performing Lab: Notes/Report: [facility] Transvaginal Obstetric Study Report Name: JOSE ROBISON Accession/Encounter No:[id number] Procedure/Order ID: [id number] : 2005 Age: 19 Gender: F Study [...] 1 of 1 Imaging Center - , [facility] Ellis REASON FOR VISIT MAB follow up Social History Sex Assigned At : Social History Observation Description Sex Assigned At Female Encounters Encounter Location Date Provider Diagnosis [facility] [address] [place] [address] 02/04/2025 Lisa Dye Missed O02.1 Assessments Encounter Date Diagnosis (ICD Code) Assessment Notes Treatment Notes Treatment Clinical Notes Section Notes 02/04/2025 Missed (ICD-10 - O02.1) Plan Of Treatment No Information Progress Notes * Esperanza ROBISONOB:2005 (19 yo F)Acc No.[id number]:02/04/2025 Patient: Jose Celestin Provider: Yaquelin Dye DO :2005 A ge:19 Y S ex:Female Date:02/04/2025 Address:[address] [place] [address] Subjective: * Chief Complaints: * M AB follow up Assessment: * Assessment: 1. M issed - O02.1 (Primary) Plan: * Treatment: Billing Information: * Procedure Codes: * Electronic signature of Eduarda Dye DO on 05/05/2025 at 07:53 PM EDT Sign off status: Pending Visit Status: C HK (Check Out) * Provider: Yaquelin Dye DO Date: 0 02/04/2025 Generated for Nathalie francis/Ender/eTransmitting on: 1 07:53 PM EDT
--- OUTSIDE RECORDS SUMMARY | 2025-02-17 10:00 | XMS_ITS ---
Author Organization [facility] Address [address] [place] [address] Care Team Providers Care Compliance Engineer Name Role Phone Lisa Dye Unavailable [phone] Dania Kaplan Unavailable [phone] REASON FOR VISIT OB conf* LMP 12/10/24 MG 09/15/25 Social History Sex Assigned At : Social History Observation Description Sex Assigned At Female Encounters Encounter Location Date Provider Diagnosis [facility] [address] [place] [address] 02/17/2025 Dania Kaplan Plan Of Treatment No Information Progress Notes * Abdoulaye ROBISONMiladisOB:2005 (19 yo F)Acc No.[id number]:02/17/2025 Progress Note Patient: [place] Celestin Provider: Patricia Kaplan APRN :2005 A ge:19 Y S ex:Female Date:02/17/2025 Address:[address] [place], [place] [id number] Subjective: * Chief Complaints: * O B conf* LMP 12/10/24 MG 09/15/25 * Electronic signature of Johny Kaplan NP on 05/05/2025 at 07:53 PM EDT Sign off status: Pending Visit Status: R /S (Rescheduled) * Provider: Patricia Kaplan APRN Date: 0 02/17/2025 Generated for Printi ng/Faxing/eTransmitting on: 1 07:53 PM EDT
[2025-05-05 19:40] VITALS: BP 121/79; PULSE 69; RESP 18; TEMP 36.8; O2SAT 100; BMI 32.1
--- OUTSIDE RECORDS SUMMARY | 2025-05-05 19:53 | XMS_ITS | Clinical Summary ---
Author Organization [facility] Address [address] [id number] Care Team Providers Care Retail Department Supervisor Name Role Phone Tyron Lang MD Primary Care Provider [phone] Allergies Active Allergy Reactions Criticality Noted Date [...] Active Problems Problem Noted Date Diagnosed Date Rupture of anterior cruciate ligament of right k nee 08/02/2021 Overview (08/02/2021): Added automatically from request for surgery [id number] Acute medial meniscus tear of right knee 022 Resolved Problems Problem Noted Date Diagnosed Date Resolved Date S/P ACL reconstruction 08/18/202104/20 Acute pain of right knee 08/02/2021 Family History Medical History Relation Name Comments [...] [facility]-HIV Screening 2004 [facility]-Hepatitis C Screening 2004 [facility]-/Child/Adol SDOH Screenings 2004 HPV Vaccines (1 - 3-dose series) 2019 [facility]-Depression Screening 08/02/2022 [facility]- SDOH Screenings 2022 [facility]-Adult SDOH Screenings 2022 [facility]-IVOVC-11 Vaccine ( - season) 2025 [facility]-Influenza Vaccine (#1) 2025 [facility]-DTaP,Tdap,and Td Vaccines [...] this topic Medical Devices Implanted Type Area Paper Box Cutter Device Identifier Shelf Expiration Date Model / Serial / Lot Hip Stem Fast Fix 360 - [id number] - [id number] Implanted:Qty: 2 on 08/12/2021 by Myron Gipson MD at [facility] [place] Right: Knee [employer] (Acu[employer])-[id number] 05/18/2024 [id number] / [id number] / [id number] Screw 8mm Cannu-Flex Silk Interference 20mm Strl - [id number] - [id number] Implanted:Qty: 1 on 08/12/2021 by Myron Gipson MD at [facility] Screw Right: Knee [employer] ([employer])-[id number] 12/17/2024 [id number] / [id number] / [id number] Screw 7mm Cannu-Flex Silk Interference 20mm Strl - [id number] - [id number] Implanted:Qty: 1 on 08/12/2021 by Myron Gipson MD at [facility] Screw Right: Knee [employer] ([employer])-[id number] 01/19/2026 [id number] / [id number] / [id number] [place] [id number] ANTHEM K AND K INSURANCE K AND K INSURANCE ANTHEM Care Teams Retail Department Supervisor Relationship Specialty Start Date End Date Tyron Lang MD [address] [facility] [address] [place] [address] PCP - General 12/11/20
--- OUTSIDE RECORDS SUMMARY | 2025-05-05 19:53 | XMS_ITS | Clinical Summary ---
Author Organization [facility] Address [address], [address] [place] [address] Care Team Providers Care Histology Technologist Name Role Phone Lissett Mary APRN - DATA CAPTURE CLERK Primary Care Provider Social History Tobacco Use Types Packs/Day Years Used Date Smoking Tobacco: Never Assessed Comments Unknown Sex and Gender Information Value Date Recorded Sex Assigned at Not on file Legal Sex Female 5:23 PM EDT Gender Identity Not on file Sexual Orientation Not on file Plan of Treatment Health Maintenance Due Date Last Done Comments DTaP/Tdap/Td vaccine (1 - Tdap) 2023 Flu vaccine (#1) 02/28/2025 COVID-19 Vaccine (2023-2 5 season) 2025 Polio vaccine Aged Out No longer elig ible based on patient's age to complete this topic Insurance [facility] MEDICAID [place] Care Teams Histology Technologist Relationship Specialty Start Date End Date Lissett Mary APRN - RUTH [address] [address] PCP - General Nurse Practitioner 10/22/24
--- OUTSIDE RECORDS SUMMARY | 2025-05-05 19:53 | XMS_ITS | Patient Health Record ---
Author Organization [facility] Address [address] [facility] [address] [place] [address] Care Team Providers Care Kennel Technician Name Role Phone Lisa Dye Unavailable [phone] Dania Kaplan Unavailable [phone] Allergies Allergen (clinical drug ingredient) Drug/Non Drug Allergy documented on EMR Reaction Allergy Type Onset Date Status Rocephin Unknown Drug Allergy Active Results Component Value Reference Range Notes *US OB Complete Transabdomin al/Vaginal Reviewed date:01/27/2025 01:03:00 PM Interpretation: Performing Lab: Notes/Report: [facility] Transvaginal Obstetric Study Report Name: JOSE ROBISON Accession/Encounter No:[id number] Procedure/Order ID: [id number] : 2005 Age: 19 Gender: F Study [...] 1.3 mm pole: Present Biometry (Fetus A) [place]-rump length:2.58 mm 5w 6d Findings: Anatomy: Sonographic [...] 1 of 1 Imaging Center - , [facility] [address] *US OB Complete Transabdomin al/Vaginal Reviewed date:02/06/2025 08:59:42 AM Interpretation: Performing Lab: Notes/Report: [facility] Transvaginal Obstetric Study Report Name: JOSE ROBISON Accession/Encounter No:[id number] Procedure/Order ID: [id number] : 2005 Age: 19 Gender: F Study [...] PM EDT Electronically Signed on Studycast JOSE ROLDANYARELI 2025-02-04 Page 1 of 1 Imaging Center - , [facility] HCG, QUANTITATIVE, Reviewed date:01/21/2025 11:00:35 AM Interpretation:[id number] Performing Lab: Notes/Report: HCG Ranges by Gestational Age Females - non- premenopausal </= 1mIU/mL HCG Females - postmenopausal </= 7mIU/mL HCG 3 Weeks 5.4 - 72 mIU/mL 4 Weeks 10.2 - 708 mIU/mL 5 Weeks 217 - 8,245 mIU/mL 6 Weeks 152 - 32,177 mIU/mL 7 Weeks 4,059 - 153,767 mIU/mL 8 Weeks 31,366 - 149,094 mIU/mL 9 Weeks 59,109 - 135,901 mIU/mL 10 Weeks 44,186 - 170,409 mIU/mL 12 Weeks 27,107 - 201,615 mIU/mL 14 Weeks 24,302 - 93,646 mIU/mL 15 Weeks 12,540 - 69,747 mIU/mL 16 Weeks 8,904 - 55,332 mIU/mL 17 Weeks 8,240 - 51,793 mIU/mL 18 Weeks 9,649 - 55,271 mIU/mL BETA HCG II, TOTAL 7743.00 Lab speci mens received at a [facility].?See result details for the performing location information. PROGESTERONE Reviewed date:01/23/2025 09:37:05 AM Interpretation:9.45 Performing Lab: Notes/Report: Progesterone Reference Ranges: Adult Males: 0.0-0.5 ng/mL Adult Femles: Follicular phase 0.1-0.9 ng/mL Ovulation phase 0.1-12.0 ng/mL Luteal phase 1.8-23.9 ng/mL Postmenopausal 0.0-0.1 ng/mL : First Trimester 11.0-44.3 ng/mL Second Trimester 25.4-83.3 ng/mL Third Trimester 58.7-214.0 ng/mL Results may be falsely increased if patient taking Biotin. PROGESTERONE LEVEL 9.45 Lab speci mens received at a [facility].?See result details for the performing location information. HCG, QUANTITATIVE, Reviewed date:01/23/2025 09:35:42 AM Interpretation:[id number] Performing Lab: Notes/Report: HCG Ranges by Gestational Age Females - non- premenopausal </= 1mIU/mL HCG Females - postmenopausal </= 7mIU/mL HCG 3 Weeks 5.4 - 72 mIU/mL 4 Weeks 10.2 - 708 mIU/mL 5 Weeks 217 - 8,245 mIU/mL 6 Weeks 152 - 32,177 mIU/mL 7 Weeks 4,059 - 153,767 mIU/mL 8 Weeks 31,366 - 149,094 mIU/mL 9 Weeks 59,109 - 135,901 mIU/mL 10 Weeks 44,186 - 170,409 mIU/mL 12 Weeks 27,107 - 201,615 mIU/mL 14 Weeks 24,302 - 93,646 mIU/mL 15 Weeks 12,540 - 69,747 mIU/mL 16 Weeks 8,904 - 55,332 mIU/mL 17 Weeks 8,240 - 51,793 mIU/mL 18 Weeks 9,649 - 55,271 mIU/mL BETA HCG II, TOTAL 8409.00 Lab speci mens received at a [facility].?See result details for the performing location information. Urine Reviewed date:01/21/2025 11:00:49 AM Interpretation:Positive Performing Lab: Notes/Report: Reason For Referral No Information Social History Sex Assigned At : Social History Observation Description Sex Assigned At Female Social History Additional Details Category Social Info Options Details Migrated Social History Drug/Alcohol: den ies drug use/less than monthly alcohol use Tobacco Use: daily e-cigarett e smoker, since age 14 Problems Problem Type SNOMED Code ICD Code Onset Dates Problem Status W/U Status Risk Notes Problem Missed (43566498) Missed (O02.1) Active confirmed Problem Missed period (61182430) Missed period (N92.6) Active confirmed Vital Signs Oximetry 98 % 02/04/2025 Blood pressure diastolic 72 mm Hg 02/04/2025 Height 62 in 02/04/2025 Blood pressure systolic 100 mm Hg 02/04/2025 Weight 161.0 lbs 02/04/2025 BMI 29.44 kg/m2 02/04/2025 Encounters Encounter Location Date Provider Diagnosis [facility] [address] [facility] [address] [place] [address] 01/23/2025 Dania Kaplan Missed period N92.6 [facility] [address] [facility] [address] [place] [address] 01/24/2025 Lisa Marnie Missed O02.1 [facility] [address] [facility] [address] [place] [address] 02/04/2025 Lisa Marnie Missed O02.1 ; 8 weeks gestation of Z3A.08 and Complete or unspecified spontaneous without complication O03.9 [facility] [address] [facility] [address] [place] [address] 01/24/2025 Lisa [place] Bleeding in early O20.9 [facility] [address] [place] [address] 01/20/2025 Dania Kaplan Encounter for test, result positive Z32.01 [facility] [address] [facility] [address] [place] [address] 01/24/2025 [facility] [place] [facility] [address] [facility] [address] [place] [address] 02/04/2025 Lisa Marnie Missed O02.1 Assessments Encounter Date Diagnosis (ICD Code) Assessment Notes Treatment Notes Treatment Clinical Notes Section Notes 01/20/2025 Encounter for test, result positive (ICD-10 - Z32.01) discussed possible edward, bleeding precautions given will call for US after labs done 01/24/2025 Missed period (ICD-10 - N92.6) 01/24/2025 Bleeding in early (ICD-10 - O20.9) -US today reviewed and showed SIUP with yolk sac and possible pole without cardiac activity measuring 5w6d, Dating 6w3d by LMP. Endometrium appears heterogenous and cystic. Left ovary WNL, complex area withithn right ovary, no free fluid -Reviewed abnormal bhcg rise and low initial progesteronne -Dicussed is either early viable IUP or early nonviable -Will need to repeat US in 11 days to confirm -Follow up for US -Advised to present if heavy bleeding or severe pain before that time 01/23/2025 Missed period (ICD-10 - N92.6) 02/04/2025 Missed (ICD-10 - O02.1) 02/04/2025 Missed (ICD-10 - O02.1) 02/04/2025 8 weeks gestation of (ICD-10 - Z3A.08) 01/24/2025 Missed (ICD-10 - O02.1) 02/04/2025 Complete or unspecified spontaneous without complication (ICD-10 - O03.9) Acute onset of bleeding and severe cramping following a missed period. Hospital evaluation confirmed miscarriage; no medication or procedures were required. Current focus is on ensuring complete resolution, as confirmed by ultrasound and absence of retained products. Plan includes monitoring beta HCG levels weekly until they reach zero to confirm full resolution. - Order beta HCG labs weekly until levels reach zero. Plan Of Treatment No Information Insurance Providers Payer Name Payer Address Payer Phone Subscriber Number Group Number Insured Name Patient Relationship to Insured Coverage Start Date Coverage End Date [employer] [address] [address] [place], [place] [id number] Jose Robison Self - patient is the insured Medical (General) History Medical History History ICD Code Migraines Anxiety Surgical History Surgery Date(Month/Year) Tonsillectomy Oral surgery Knee surgery
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
[2025-05-05 20:19] LABS: Microscopic, Urine URINE MICROSCOPIC (MICROSCOPIC)
[2025-05-05 20:34] LABS: Urine Pregnancy, HCG Qual. Negative (Negative)
[2025-05-05 20:35] LABS: Bilirubin,Urine Negative (Negative); Color,Urine YELLOW (Yellow); Glucose,Urine (UA) Negative (Negative); Ketones,Urine Negative (Negative); Leukocyte Esterase,Urine Negative (Negative); PH,Urine 6.0 (5.0-8.5); Protein,Urine Negative (Negative); Specific Gravity, Urine 1.015 (1.005-1.030); Urobilinogen,Urine 0.2 EU/dl (0.2)
[2025-05-05 21:12] VITALS: BP 118/80; PULSE 72; RESP 18; TEMP 36.8; O2SAT 100
[2025-05-05 21:32] LABS: Bacteria,Urine Trace /lpf; WBC,Urine Occasional #/hpf (0-3)
--- NOTE | 2025-05-06 04:52 | PC.NURSE ---
Discussed results w Dr. Fountain. Flagyl sufficient for treatment. Will call pt to discuss results.
--- NOTE | 2025-05-06 06:37 | PC.NURSE ---
Left message for pt to call back.
--- NOTE | 2025-05-06 18:02 | PC.NURSE ---
Attempted to call patient with STI test results. No answer, left message to return call.
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
== END 2025-05-05 21:13 | disposition home or self-care (01) ==
PROVIDERS: Physician Assistant; Emergency Provider Student in an Organized Health Care Education/Training Program; PCP Registered Nurse
DX: N89.8 Other specified noninflammatory disorders of vagina (principal); A59.01 Trichomonal vulvovaginitis
CPT/HCPCS: 81001; 81025; 87220; 87491; 87591; 87661; 99283

== ENCOUNTER 2025-07-04 10:36 | Outpatient (CLI) | payer MEDICAID, SELFPAY | END 2025-07-04 23:59 | disposition home or self-care (01) | LOC: LAB 10:36 | PROVIDERS: PCP Registered Nurse; Visit Provider Obstetrics & Gynecology | DX: Z34.90 Encounter for supervision of normal pregnancy, unspecified, unspecified trimester (principal); Z3A.00 Weeks of gestation of pregnancy not specified | CPT/HCPCS: 36415; 84144; 84702 ==

== ENCOUNTER 2025-07-10 10:45 | Outpatient (CLI) | payer MEDICAID, SELFPAY ==
--- NOTE | 2025-07-10 11:00 | US_ITS ---
PROCEDURE: US TRANSVAGINAL CLINICAL INDICATION: heavy uterine bleeding COMPARISON: CT CT ABDOMEN PELVIS W CON from 04/01/2023 US US TRANSVAGINAL from 01/27/2025 FINDINGS: Transvaginal sonographic images of the pelvis were obtained. UTERUS: 7.0cm x 5.9 cmx 5.1cm retroverted with a combined endometrial thickness of 4.9mm. LEFT OVARY: 3.4cmx2.0cmx2.2cm with a volume of 7.9ml. There are multiple small peripheral follicles consistent with a polycystic ovary. RIGHT OVARY: 4.3cmx 2.5cmx1.8 cm with a volume of 10.1ml. There are multiple small peripheral follicles consistent with a polycystic ovary. There is a small amount of free fluid adjacent to the right ovary. Both ovaries are seen and appear polycystic. Doppler flow to both ovaries are seen. There is no fluid in the cul-de-sac. IMPRESSION: 1. Retroverted uterus normal in shape and size. The endometrium is thin measuring 4.9 mm. 2. Both ovaries are seen and appear polycystic. There is a small amount of fluid adjacent to the right ovary. 3. No fluid in the cul-de-sac. Dictated by: Rafal Zayas MD 07/10/2025 13:57 Rafal Zayas MD in OV 07/10/2025 13:57
== END 2025-07-10 23:59 | disposition home or self-care (01) ==
LOC: RAD 10:45
PROVIDERS: PCP Registered Nurse; Visit Provider Obstetrics & Gynecology
DX: N85.4 Malposition of uterus (principal); N93.9 Abnormal uterine and vaginal bleeding, unspecified; R93.89 Abnormal findings on diagnostic imaging of other specified body structures
CPT/HCPCS: 76830

== ENCOUNTER 2025-07-15 14:20 | Outpatient (CLI) | payer MEDICAID, SELFPAY ==
--- OUTSIDE RECORDS SUMMARY | 2025-01-24 05:30 | XMS_ITS ---
Author Organization [facility] Address [address] [place] [address] Care Team Providers Care Outreach Specialist Name Role Phone Lisa Dye Unavailable [phone] Results Component Value Reference Range Notes *US OB Complete Transabdomin al/Vaginal Reviewed date:01/27/2025 01:03:00 PM Interpretation: Performing Lab: Notes/Report: [facility] Transvaginal Obstetric Study Report Name: JOSE ROBISON Accession/Encounter No:[id number] Procedure/Order ID: [id number] : 2005 Age: 19 Gender: F Study Date: Jan 24, 2025 Study Time: 11:08 AM Reading Group: Carito Sargent MD Referring Group: Lisa Dye DO Ordering Phys: Lisa Dye DO Performing User: Janelle Escobar RDMS Equipment: Affiniti 30 Study Quality: Good Indications: Early OB bleeding. Inappropriate HCG rise A 1st Trimester ultrasound was performed. Disclaimer: Ultrasound cannot detect all structural defects or underlying genetic abnormalities. Additionally, some abnormalities develop over time and/or are not detectable until after . General Information Trimester: 1st trimester Gestations: 1 : Intrauterine Gestational Age (Best) Best: 6w 3d Determined by: LMP MG: 2025-09-16 Gestational Age (LMP) LMP: 6w 3d First Day of LMP: 2024-12-10 MG: 2025-09-16 Gestational Age (Current US) Current US: 5w 6d Current US MG by: MG: 2025-09-20 General Evaluation cardiac activity: Absent Gestational sac: Present 27.7 mm x 14.1 mm x 5.7 mm Gestational sac median diam: 15.8 mm 6w 3d Yolk sac: Present 1.3 mm pole: Present Biometry (Fetus A) Enoch-rump length:2.58 mm 5w 6d Findings: Anatomy: Sonographic evaluation reveals castañeda intrauterine . cardiac activity absent. Maternal Anatomy: There is a 1.98 x 1.2 x 1.7 cm cyst noted on the right ovary. Conclusions: IU Gestational sac noted with yolk sac and possible pole without cardiac activity at this time. Possible pole measuring 5 weeks and 6 days. Size is consistent with LMP dating. Endometrium appears heterogenous with cystic areas within. Left ovary appears WNL. There is a complex area noted within the right ovary with peripheral blood flow, measurements above. No free fluid noted. Approved By: Carito Sargent MD Approved at: January 26, 2025 05:15 PM EDT Electronically Signed on Studycast JOSE ROBISON 2025-01-24 Page 1 of 1 Imaging Center - , [email or web address]]&[facility] REASON FOR VISIT inappropriate rise in hcg lmp 5-13...went to [place]. heading to [place]..sdw Social History Sex Assigned At : Social History Observation Description Sex Assigned At Female Encounters Encounter Location Date Provider Diagnosis [facility] [address] [place] [address] 01/24/2025 Lisa Dye Missed period N92.6 Assessments Encounter Date Diagnosis (ICD Code) Assessment Notes Treatment Notes Treatment Clinical Notes Section Notes 01/24/2025 Missed period (ICD-10 - N92.6) Plan Of Treatment No Information Progress Notes * Abdoulaye ROBISONMiladisOB:2005 (19 yo F)Acc No.[id number]:01/24/2025 Progress Note Patient: Jose Celestin Provider: Yaquelin Dye DO :2005 A ge:19 Y S ex:Female Date:01/24/2025 Address:[address] [place] [address] Subjective: * Chief Complaints: * i nappropriate rise in hcg lmp 5-13...went to [place]. heading to [place]..sdw Assessment: * Assessment: 1. M issed period - N92.6 Plan: * Treatment: Billing Information: * Procedure Codes: * Electronic signature of Eduarda Dye DO on 07/15/2025 at 02:24 PM EST Sign off status: Pending Visit Status: C HK (Check Out) * Provider: Yaquelin Dye DO Date: 0 01/24/2025 Generated for Nathalie francis/Ender/eTransmitting on: 1 09/15/2024 02:24 PM EST
--- OUTSIDE RECORDS SUMMARY | 2025-02-04 09:00 | XMS_ITS ---
Author Organization [facility] Address [address] [place] [address] Care Team Providers Care Partner Manager Name Role Phone Lisa Dye Unavailable [phone] Results Component Value Reference Range Notes *US OB Complete Transabdomin al/Vaginal Reviewed date:02/06/2025 08:59:42 AM Interpretation: Performing Lab: Notes/Report: [facility] Transvaginal Obstetric Study Report Name: JOSE ROBISON Accession/Encounter No:[id number] Procedure/Order ID: [id number] : 2005 Age: 19 Gender: F Study Date: Feb 04, 2025 Study Time: 02:03 PM Reading Group: Carito Sargent MD Referring Group: Lisa Dye DO Ordering Phys: Lisa Dye DO Performing User: Janelle Escobar RDMS Equipment: Affiniti 30 Study Quality: Good Indications: Follow up MAB A 1st Trimester ultrasound was performed. Disclaimer: Ultrasound cannot detect all structural defects or underlying genetic abnormalities. Additionally, some abnormalities develop over time and/or are not detectable until after . General Information Trimester: 1st trimester Gestations: 0 Gestational Age (Best) Best: 8w 0d Determined by: LMP MG: 2025-09-16 Gestational Age (Prev Study) Previous US: 8w 0d Previous Study: Dec 2024 by LMP MG: 2025-09-16 Gestational Age (LMP) LMP: 8w 0d First Day of LMP: 2024-12-10 MG: 2025-09-16 Findings: General: Sonographic evaluation reveals no evidence of intrauterine nor ectopic . Maternal Anatomy: Cervix is 2.89 cm long. The uterus is 5.18 x 5.42 x 4.86 cm, with volume of 71.4 ml. The endometrium measures 4.8 mm. The right ovary measures 3.88 x 2.34 x 2.18 cm, volume 10.36 ml. The left ovary measures 4.01 x 1.6 x 2.17 cm, volume 7.29 ml. Conclusions: No evidence of IUP or RPOC noted. Uterus appears normal. Ovaries and bilateral adnexa appear normal. No free fluid noted. Approved By: Carito Sargent MD Approved at: February 05, 2025 08:42 PM EDT Electronically Signed on Studycast JOSE ROBISON 2025-02-04 Page 1 of 1 Imaging Center - , [facility] - [facility] Ellis REASON FOR VISIT MAB follow up Social History Sex Assigned At : Social History Observation Description Sex Assigned At Female Encounters Encounter Location Date Provider Diagnosis [facility] [address] [place] [address] 02/04/2025 Lisa Dye Missed O02.1 Assessments Encounter Date Diagnosis (ICD Code) Assessment Notes Treatment Notes Treatment Clinical Notes Section Notes 02/04/2025 Missed (ICD-10 - O02.1) Plan Of Treatment No Information Progress Notes * Esperanza ROBISONOB:2005 (19 yo F)Acc No.[id number]:02/04/2025 Patient: Jose Celestin Provider: Yaquelin Dye DO :2005 A ge:19 Y S ex:Female Date:02/04/2025 Address:[address] [place] [address] Subjective: * Chief Complaints: * M AB follow up Assessment: * Assessment: 1. M issed - O02.1 (Primary) Plan: * Treatment: Billing Information: * Procedure Codes: * Electronic signature of Eduarda Dye DO on 07/15/2025 at 02:24 PM EST Sign off status: Pending Visit Status: C HK (Check Out) * Provider: Yaquelin Dye DO Date: 0 02/04/2025 Generated for Nathalie francis/Ender/eTlamsmitting on: 1 09/15/2024 02:24 PM EST
--- OUTSIDE RECORDS SUMMARY | 2025-02-17 09:00 | XMS_ITS ---
Author Organization [facility] Address [address] [place] [address] Care Team Providers Care Hospital Intern Name Role Phone Lisa Dye Unavailable [phone] Dania Kaplan Unavailable [phone] REASON FOR VISIT OB conf* LMP 12/10/24 MG 09/15/25 Social History Sex Assigned At : Social History Observation Description Sex Assigned At Female Encounters Encounter Location Date Provider Diagnosis [facility] [address] [place] [address] 02/17/2025 Dania Kaplan Plan Of Treatment No Information Progress Notes * Abdoulaye ROBISONMiladisOB:2005 (19 yo F)Acc No.[id number]:02/17/2025 Progress Note Patient: Africa Celestin Provider: Patricia Kaplan APRN :2005 A ge:19 Y S ex:Female Date:02/17/2025 Address:[address] [place], [place] [id number] Subjective: * Chief Complaints: * O B conf* LMP 12/10/24 MG 09/15/25 * Electronic signature of Johny Kaplan NP on 07/15/2025 at 02:24 PM EST Sign off status: Pending Visit Status: R /S (Rescheduled) * Provider: Patricia Kaplan APRN Date: 0 02/17/2025 Generated for Printi ng/Faxing/eTransmitting on: 1 09/15/2024 02:24 PM EST
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
--- OUTSIDE RECORDS SUMMARY | 2025-07-15 14:25 | XMS_ITS | Patient Health Record ---
Author Organization [facility] Address [address] [facility] [address] [place] [address] Care Team Providers Care Ruby Software Developer Name Role Phone Lisa Dye Unavailable [phone] Dania Kaplan Unavailable [phone] Allergies Allergen (clinical drug ingredient) Drug/Non Drug Allergy documented on EMR Reaction Allergy Type Onset Date Status Rocephin Unknown Drug Allergy Active Results Component Value Reference Range Notes *US OB Complete Transabdomin al/Vaginal Reviewed date:01/27/2025 01:03:00 PM Interpretation: Performing Lab: Notes/Report: [facility] Transvaginal Obstetric Study Report Name: JOSE ROBISON Accession/Encounter No:[id number] Procedure/Order ID: [id number] : 2005 Age: 19 Gender: F Study [...] 1.3 mm pole: Present Biometry (Fetus A) Ramer-rump length:2.58 mm 5w 6d Findings: Anatomy: Sonographic [...] 1 of 1 Imaging Center - , [facility] [address] *US OB Complete Transabdomin al/Vaginal Reviewed date:02/06/2025 08:59:42 AM Interpretation: Performing Lab: Notes/Report: [facility] Transvaginal Obstetric Study Report Name: JOSE ROBISON Accession/Encounter No:[id number] Procedure/Order ID: [id number] : 2005 Age: 19 Gender: F Study [...] 1 of 1 Imaging Center - , [facility] HCG, QUANTITATIVE, Reviewed date:01/21/2025 11:00:35 AM Interpretation:[id number] [...] 7743.00 Lab speci mens received at a [facility].?See result details for the performing location information. [...] 9.45 Lab speci mens received at a [facility].?See result details for the performing location information. [...] 8409.00 Lab speci mens received at a [facility].?See result details for the performing location information. [...] Status W/U Status Risk Notes Problem Missed (48043086) Missed (O02.1) Active confirmed Problem Missed period (03178915) Missed period (N92.6) Active confirmed Vital Signs Oximetry 98 % 02/04/2025 Blood pressure diastolic 72 mm Hg 02/04/2025 Height 62 in 02/04/2025 Blood pressure systolic 100 mm Hg 02/04/2025 Weight 161.0 lbs 02/04/2025 BMI 29.44 kg/m2 02/04/2025 Encounters Encounter Location Date Provider Diagnosis [facility] [address] [facility] [address] [place] [address] 01/23/2025 Dania Kaplan Missed period N92.6 [facility] [address] [facility] [address] [place] [address] 01/24/2025 Lisa Marnie Missed O02.1 [facility] [address] [facility] [address] [place] [address] 01/24/2025 Lisa Desoto Bleeding in early O20.9 [facility] [address] [facility] [address] [place] [address] 02/04/2025 Lisa Marnie Missed O02.1 ; 8 weeks gestation of Z3A.08 and Complete or unspecified spontaneous without complication O03.9 [facility] [address] [place] [address] 01/20/2025 Dania Kaplan Encounter for test, result positive Z32.01 [facility] [address] [facility] [address] [place] [address] 01/24/2025 Lisa Marnie [facility] period [facility]92.6 [facility] [facility] [address] [place] [address] 02/04/2025 Lisa Marnie Missed O02.1 Assessments Encounter [...] Coverage End Date [employer] [address] [address] [place], [place] [id number] Jose Robison Self - patient is the insured Medical (General) History Medical History History ICD Code Migraines Anxiety Surgical History Surgery Date(Month/Year) Tonsillectomy Oral surgery Knee surgery
--- OUTSIDE RECORDS SUMMARY | 2025-07-15 14:25 | XMS_ITS | Clinical Summary ---
Author Organization [facility] Address [address] [place] [address] Care Team Providers Care Tin Flipper Name Role Phone Farzaneh Philippe APRN Primary Care Provider Social History Tobacco Use Types Packs/Day Years Used Date Smoking Tobacco: Never Assessed Comments Unknown Sex and Gender Information Value Date Recorded Sex Assigned at Not on file Legal Sex Female 3:00 PM EDT Gender Identity Not on file Sexual Orientation Not on file Plan of Treatment Health Maintenance Due Date Last Done Comments ANNUAL PHYSICAL 2004 HEPATITIS C SCREENING 2004 HPV VACCINES (1 - 3-dose series) 2019 MENINGOCOCCAL B VACCINE (1 of 2 - Standard) 2020 INFLUENZA VACCINE 02/28/2025 06/24/2024 TDAP/TD VACCINES (2 - Td or Tdap) 02/11/2026 02/12/2016 Pneumococcal Vaccine 0-49 Aged Out 2005, 03/15/2005, 01/13/2005, Additional history exists No longer eligible based on patient's age to complete this topic MENINGOCOCCAL VACCINE Aged Out 02/12/2016 No gelacio fiona eligible based on patient's age to complete this topic Insurance [employer] [place] Care Teams Tin Flipper Relationship Specialty Start Date End Date Farzaneh Philippe APRN [address] [place] [address] PCP - General Family Medicine 01/20/25
--- OUTSIDE RECORDS SUMMARY | 2025-07-15 14:25 | XMS_ITS | Clinical Summary ---
Author Organization [facility] Address [address] [place] [id number] Care Team Providers Care Lead Quality Control Technician Name Role Phone Tyron Lang MD Primary Care Provider [phone] Allergies Active Allergy Reactions Criticality Noted Date [...] (08/02/2021): Added automatically from request for surgery [id number] Acute medial meniscus tear of right knee [...] Health Maintenance Due Date Last Done Comments [facility]-Depression Screening 2004 [facility]-Infant/Child/Adol SDOH Screenings 2004 HPV Vaccines (1 - 3-dose series) 2019 [facility]- SDOH Screenings 2022 [facility]-Adult SDOH Screenings 2022 [id number] Vaccine ( - 2024- season) 2025 [facility]-Influenza Vaccine (#1) 2025 [facility]-DTaP,Tdap,and [...] this topic Medical Devices Implanted Type Area Bag Hanger Device Identifier Shelf Expiration Date Model / Serial / Lot Hip Stem Fast Fix 360 - [id number] - [id number] Implanted:Qty: 2 on 08/12/2021 by Myron Gipson MD at [facility] [place] Right: Knee [employer] ([employer])-[id number] 05/18/2024 [id number] / [id number] / [id number] Screw 8mm Cannu-Flex Silk Interference 20mm Strl - [id number] - [id number] Implanted:Qty: 1 on 08/12/2021 by Myron Gipson MD at [facility] Screw Right: Knee [employer] ([employer])-[id number] 12/17/2024 [id number] / [id number] / [id number] Screw 7mm Cannu-Flex Silk Interference 20mm Strl - [id number] - [id number] Implanted:Qty: 1 on 08/12/2021 by Myron Gipson MD at [facility] Screw Right: Knee [employer] ([employer])-[id number] 01/19/2026 [id number] / [id number] / [id number] [place] [id number] ANTHEM K AND K INSURANCE K AND K INSURANCE ANTHEM Care Teams Lead Quality Control Technician Relationship Specialty Start Date End Date Tyron Lang MD [address] [facility] [address] [place] [phone] PCP - General 12/11/20
--- OUTSIDE RECORDS SUMMARY | 2025-07-15 14:25 | XMS_ITS | Clinical Summary ---
Author Organization [facility] Address [address] [facility], [address] [place] [address] Care Team Providers Care Door Installer Name Role Phone Lissett Mary APRN - TIN POT OPERATOR Primary Care Provider Social History Tobacco Use [...] patient's age to complete this topic Insurance [facility] MEDICAID [place] Care Teams Door Installer Relationship Specialty Start Date End Date Lissett Mary APRN - RUTH [address] [address] PCP - General Nurse Practitioner 10/22/24
== END 2025-07-15 23:59 | disposition home or self-care (01) ==
LOC: LAB 14:20
PROVIDERS: PCP Registered Nurse; Visit Provider Obstetrics & Gynecology
DX: O46.90 Antepartum hemorrhage, unspecified, unspecified trimester (principal); Z3A.00 Weeks of gestation of pregnancy not specified
CPT/HCPCS: 36415; 84702